=== PATIENT | female | born 1965 | race Caucasian/White ===

== ENCOUNTER 2022-06-19 09:58 | Outpatient (CLI) | payer OTHER, SELFPAY ==
--- NOTE | ~2022-06-19 | MM_ITS ---
EXAMINATION: MM screening iam BI w ros HISTORY: Screening mammogram TECHNIQUE: Craniocaudal and mediolateral oblique 3-D tomosynthesis images were obtained and synthetic 2-D images were generated. Bilateral rotated lateral CC views. CAD analysis was submitted and interpreted. COMPARISON: 10/13/2019 bilateral screening mammogram BREAST PARENCHYMAL COMPOSITION: The breasts are almost entirely fatty. FINDINGS: There is no evidence of suspicious mass, calcification, or architectural distortion to sugg est malignancy in either breast. There has been no suspicious interval change. IMPRESSION: 1. No mammographic evidence of malignancy. 2. Recommend routine screening mammography in one year. BI-RADS Category 1: Negative Reviewed, dictated and finalized at location A.
== END 2022-06-19 09:59 | disposition home or self-care (01) ==
LOC: ANHIMG 10:02
PROVIDERS: PCP Student in an Organized Health Care Education/Training Program; Visit Provider Student in an Organized Health Care Education/Training Program
DX: Z12.31 Encounter for screening mammogram for malignant neoplasm of breast (principal)
CPT/HCPCS: 77063; 77067

== ENCOUNTER 2025-04-22 13:12 | Inpatient (IN) | payer OTHER, SELFPAY ==
[2025-04-22] VITALS (8 sets, daily range): BP systolic 111–155; BP diastolic 58–95; PULSE 52–60; RESP 16–25; TEMP 36.1–36.2; O2SAT 92–97; BMI 49.1
--- NOTE | ~2025-04-22 | CT_ITS ---
CTA chest PE protocol Ordering provider: Farzaneh Bone MD History: 59 years Female with . Hypoxia . Comparison: None. Technique: CT angiogram chest was performed following timed intravenous injection of contrast. Thin s lice axial images and reformatted coronal images were obtained. Three dimensional reformatted images of the chest were also obtained using a [employer] workstation. . Automated exposure control and iterati ve reconstruction technique were employed. The dose-length product was 1010.29 mGy-cm. 100 mL Omnipaq ue 350 was given IV. Findings: PULMONARY ARTERIES: No pulmonary embolus. VISUALIZED THORACIC INLET: Enlarged thyroid gland with a slight narrowing of the trachea.. Ultrasound evaluation clinical correlation advised. MEDIASTINUM: Aorta/coronary arteries: The thoracic aorta is normal. Heart/other: The heart is moderately enlarged. Lymph nodes: No mediastinal or hilar adenopathy. Dilated esophagus is noted. Further evaluation advised. LUNGS: Left basilar atelectasis versus pneumonia. Secretions are seen in the left main bronchus. No pulmonar y nodules or masses. No infiltrates or effusions. No pneumothorax. VISUALIZED UPPER ABDOMEN: Enlarged left adrenal gland with adenoma measuring 3.2 cm.. Further evaluat ion with MRI is advised. Status post cholecystectomy. Multiple hypodensities in the spleen which may be due to a perfusion phase but lesions cannot be excluded. Follow-up advised. Otherwise, the visuali zed upper abdomen is normal. MUSCULOSKELETAL: Soft tissues: The superficial soft tissues are normal. Bones: Age appropriate degenerative changes of the spine. IMPRESSION: 1. No pulmonary embolism. 2. Left basilar atelectasis versus pneumonia. 3. Enlarged thyroid gland with slight narrowing of the trachea. 4. Dilated esophagus. Further evaluation advised. 5. Left adrenal mass. Further evaluation advised with MRI. 6. Multiple hypodensities in the spleen. Follow-up advised. 7. Moderate cardiomegaly. Reviewed, dictated and finalized at location A.
--- NOTE | ~2025-04-22 | US_ITS ---
EXAMINATION: US thyroid DATE: 04/23/2025 08:26 INDICATION: Thyromegaly. TECHNIQUE: Multiple ultrasound images of the thyroid were obtained. COMPARISON: 03/15/2012 FINDINGS: The right thyroid lobe measures 6.9 x 2.7 x 3.2 cm. The left thyroid lobe measures 2.4 x 2.3 cm in t ransaxial dimensions. The length of the left thyroid lobe which measures approximately 5.5 cm on the prior CT is unable to be assessed on the current ultrasound as there is significant intrathoracic ext ension of the inferior left thyroid which is obscured by the clavicles and manubrium. There is a diff use heterogeneous hypoechoic pseudonodular appearance to the thyroid with coarsened echotexture and i ncreased vascular flow on color Doppler. No discrete nodules identified. IMPRESSION: 1. Enlarged and heterogeneously hypoechoic thyroid with pseudonodular appearance typical of Demetrio 's/lymphocytic thyroiditis. Reviewed, dictated and finalized at location A. IMPRESSION: 1. Enlarged and heterogeneously hypoechoic thyroid with pseudonodular appearanc e typical of Demetrio's/lymphocytic thyroiditis.
--- NOTE | ~2025-04-22 | CT_ITS ---
Non-contrast Head CT History: Altered mental status Technique: Axial non-contrast imaging of the brain was performed. Dose reduction technique was used on this scan by utilizing automated exposure control and iterative reconstruction technique. The dose -length product (DLP) was 605.33 mGy-cm. Findings: There is no evidence of intracranial hemorrhage, mass lesion, or acute infarct. Brain par enchyma appears normal. The ventricles and subarachnoid spaces are normal in size. The calvarium ap pears normal. The visualized paranasal sinuses and mastoid air cells are clear. Impression: No significant abnormality seen. Reviewed, dictated and finalized at location . Impression: No significant abnormality seen.
--- NOTE | ~2025-04-22 | XR_ITS ---
XR chest 1V portable Ordering provider: Farzaneh Bone MD History: 59 years Female with . Altered . Comparison: October 14, 2019 FINDINGS: MEDIASTINUM: The cardiac silhouette is moderately enlarged. Congestive misael. LUNGS: No effusions or pneumothorax. Bibasilar opacification suggestive of atelectasis versus pneumonia. Bilateral interstitial thickening which is suggestive of pulmonary edema. OTHER: No free air under the diaphragm. IMPRESSION: Bibasilar pneumonia. Highly suggestive cardiomegaly with cardiac decompensation and pulmonary edema. Clinical correlation advised. Reviewed, dictated and finalized at location A.
--- NOTE | 2025-04-22 13:20 | ED_ITS ---
HPI - Altered Mental Status General Chief Complaint: Altered Mental Status Stated Complaint: AMS Time Seen by Provider: 04/22/25 13:14 Source: patient and EMS Mode of arrival: EMS Limitations: no limitations History of Present Illness HPI narrative: 5 years old white female came from home by ambulance with altered mental status. Family came to check on the patient then call 911. Patient complaining of urine frequency and burning sensation for weeks patient blood glucose was 63 patient's symptom resolved immediately after having 15 g of oral glucose. EMS gave 200 mL of D10. In the ED patient is awake, alert oriented x4, complaining of urinary symptoms for weeks otherwise she denies any fever, chills, nausea, vomiting, diarrhea, constipation, abdominal pain, chest pain, shortness of breath or back pain. Patient lives with her son Patient reports eating her breakfast and taking her medication this morning as usual. Related Data Home Medications ?Medication ?Instructions ?Recorded ?Confirmed ?Last Taken ?Type aripiprazole 10 mg tablet 10 mg PO DAILY 01/05/22 03/13/22 Unknown History duloxetine 30 mg capsule,delayed 30 mg PO DAILY 01/05/22 03/13/22 Unknown History release duloxetine 60 mg capsule,delayed 60 mg PO DAILY 01/05/22 03/13/22 Unknown History release doxycycline hyclate 100 mg tablet 100 mg PO DAILY 03/10/22 03/13/22 Unknown History furosemide 20 mg tablet 20 mg PO QAM 03/10/22 03/13/22 Unknown History levofloxacin 750 mg tablet 750 mg PO DAILY 03/10/22 03/13/22 Unknown History trazodone 50 mg tablet 50 mg PO QHS PRN 03/10/22 03/13/22 Unknown History Allergies Allergy/AdvReac Type Severity Reaction Status Date / Time varenicline Allergy Unknown Verified 09/04/22 09:18 No Known Drug Allergies Allergy Unknown Verified 09/04/22 09:18 Review of Systems 2 Review of Systems: All systems reviewed & are unremarkable except as noted in HPI and below PMFSH Past Medical History Medical History Hypothyroidism Anxiety Hypertension Surgical History Surgical History History of bladder suspension procedure H/O hernia repair History of appendectomy H/O: hysterectomy History of section Hx of cholecystectomy Family History Family History Father Depression Acute myocardial infarction, Onset Age: 21 drug-cocaine Sibling Thyroid disorder Diabetes mellitus Sibling Family history of alcoholism Family history of diabetes mellitus in first degree relative Father Family history of coronary artery disease Hypertension Family history of hepatitis Family history of congestive heart failure Family history of heart disease in male family member before age 55 Mother Family history of lung disease Social History Social History Smoking status: Former smoker Second hand tobacco smoke exposure: No Smoking end date: 11/05/10 Alcohol intake: never Substance use type: marijuana Living arrangements: with family Exam 2 Narrative: General appearance: Well-developed, well-nourished Skin: Normal color Head: Normocephalic, nontraumatic Eyes: Clear conjunctiva ENT: Oropharynx normal, ears normal, nose normal Neck: Supple, nontender Chest and respiratory: Airway patent, no respiratory distress, no accessory muscle use Heart: Regular rate/rhythm Abdomen: Soft, nontender, no organomegaly, quiet bowel sounds Vascular: Normal peripheral pulses, normal capillary refill. Musculoskeletal: Normal range of motion, nontender back Neurologic: Alert and oriented ?3, MERCHANDISER is normal as tested, no gross motor deficit Course Vital Signs Vital signs: Vital Signs Pulse Rate 60 04/22/25 13:13 Respiratory Rate 25 H 04/22/25 13:13 Blood Pressure 155/95 H 04/22/25 13:13 Pulse Oximetry 93 04/22/25 13:13 Oxygen Delivery Room Air 04/22/25 13:13 Pulse Rate 60 04/22/25 15:58 Respiratory Rate 17 04/22/25 15:58 Blood Pressure 129/84 04/22/25 15:58 Pulse Oximetry 95 04/22/25 15:58 Oxygen Delivery Room Air 04/22/25 13:28 MDM - Altered Mental Status MDM Narrative Medical decision making narrative: Patient presents with altered mental status Vital signs showing blood pressure 155/95, respiratory rate 25 otherwise within normal limit Physical examination showing obese patient, does not look in pain or distress, awake alert oriented x4 Differential diagnosis include diabetic hyperglycemia, urinary tract infection, electrolyte imbalance, dehydration, TIA Blood workup today includes CBC, CMP, troponin, coags showed TSH 51.9 otherwise within normal limit Urinalysis showed no evidence of infection Chest x-ray showed cardiomegaly, pulmonary edema CT head without contrast showed no acute abnormalities ABG on room air showed hypoxia CTA pulmonary showed atelectasis versus pneumonia, large thyroid gland, dilated esophagus, left adrenal mass, multiple hypodensities in the spleen, moderate cardiomegaly Diagnosis alter mental status, resolved, diabetic hyperglycemia, hypoxia, cardiomegaly, hypothyroidism Admit to hospitalist Differential Diagnosis Differential diagnosis: Likely other (As above) Lab Data 04/22/25 14:06 04/22/25 14:06 Labs: Lab Results 04/22/25 04/22/25 Range/Units 13:29 14:06 WBC 5.8 (4.5-10.0) K/mm3 RBC 5.54 H (4.2-5.4) M/mm3 Hgb 14.2 (12.0-15.0) g/dL Hct 46.7 (37.0-47.0) % MCV 84.3 (80-100) fl MCH 25.6 L (26-34) pg MCHC 30.4 L (32-36) g/dl RDW 16.8 H (11.5-14.5) % Plt Count 175 (150-375) k/mm3 MPV 10.0 (7.4-10.4) fl Immature Gran % (Auto) 0.3 (0-0.5) % Neut % (Auto) 70.8 (45.5-73.1) % Lymph % (Auto) 23.0 (18.3-44.2) % [place] % (Auto) 5.0 (2.6-8.5) % Eos % (Auto) 0.2 (0-4.4) % Baso % (Auto) 0.7 (0.2-1.2) % Lymph # (Auto) 1.33 (0.9-3.2) K/mm3 [place] # (Auto) 0.3 (0.1-0.6) K/mm3 Eos # (Auto) 0.0 (0-0.3) K/mm3 Baso # (Auto) 0.0 (0.0-0.1) K/mm3 Abs Immat Gran (auto) 0.02 (0.00-0.031) K/mm3 Absolute Neuts (auto) 4.1 (1.3-6.7) K/mm3 Absolute Nucleated RBC 0.000 (0.0-0.012) K/mm3 Nucleated RBC % 0.0 (0.0-0.2) % PT 12.9 (11.1-14.7) Seconds INR 1.0 APTT 28.7 (22.3-36.8) Seconds Sodium 137 (137-145) mmol/L Potassium 3.6 (3.4-5.0) mmol/L Chloride 101 (98-107) mmol/L Carbon Dioxide 27 (22-30) mmol/L Anion Gap 9 (4-12) mmol/L BUN 17 (7-17) mg/dL Creatinine 0.87 (0.7-1.0) mg/dL Estim Creat Clear Calc 95 ml/min Estimated GFR > 60 (59 - ) Glucose 157 H (65-110) mg/dL POC Capillary Glucose 204 H (65-105) mg/dl Calcium 9.4 (8.4-10.2) mg/dL Total Bilirubin 0.8 (0.2-1.3) mg/dL AST 19 (14-36) U/L ALT 15 (6-35) U/L Alkaline Phosphatase 74 (38-126) U/L Ammonia < 9 L (9-30) umol/L Total Creatine Kinase 35 (30-135) U/L Troponin I < 0.012 (0.000-0.034) ng/mL NT-Pro-B Natriuret Pep 205 H (19.9-100) pg/mL Total Protein 7.7 (6.3-8.2) g/dL Albumin 4.1 (3.5-5.1) g/dL TSH 51.900 H (0.465-4.680) uIU/mL Urine Color Yellow (Yellow) Urine Appearance Clear (Clear) Urine pH 6.5 (5.0-9.0) Ur Specific [place] 1.006 (1.001-1.035) Urine Protein Negative (Negative) mg/dL Urine Glucose (UA) 2+ H (Negative) mg/dL Urine Ketones Negative (Negative) mg/dL Ur Blood (Man) Negative (Negative) Urine Nitrate Negative (Negative) Urine Bilirubin Negative (Negative) Urine Urobilinogen 0.2 (<2.0) mg/dL Leukocyte Esterase Rfl Negative (Negative) KISHOR/UL Urine Opiates Screen Negative (Negative) Urine Methadone Screen Negative (Negative) Ur Barbiturates Screen Negative (Negative) Ur Phencyclidine Scrn Negative (Negative) Ur Amphetamine Screen Negative (Negative) U Benzodiazepines Scrn Negative (Negative) Urine Cocaine Screen Negative (Negative) U Cannabinoids Screen Positive A (Negative) Ethyl Alcohol < 10 (<10) mg/dL ABG Data ABG results: 04/22/25 13:43 Puncture Site Right radial ABG pH 7.416 ABG pCO2 40.5 ABG pO2 60.2 L ABG PO2/FiO2 Ratio 2.87 ABG HCO3 25.4 ABG O2 Saturation 91.5 L ABG O2 Content 18.9 ABG Base Excess 0.9 A-a Gradient 41.0 Oxyhemoglobin 87.5 L* Total Hemoglobin 15.4 O2 Delivery Device Room air O2 Liters/Min Not Reportable FiO2 21 Critical Care Time Critical Care Time Critical Care Time: No Discharge Plan Discharge Clinical Impression: Acute alteration in mental status, Diabetic hypoglycemia, Cardiomegaly, Hypothyroidism Patient Disposition: Still a Patient Condition: Improved Additional Instructions: Admit to hospitalist Patient Language: [place] Korean Prescriptions: No Action duloxetine 60 mg capsule,delayed release(DR/EC) 60 mg PO DAILY duloxetine 30 mg capsule,delayed release(DR/EC) 30 mg PO DAILY aripiprazole 10 mg tablet 10 mg PO DAILY levothyroxine 200 mcg tablet 200 mcg PO DAILY Qty: 90 1RF levothyroxine 50 mcg tablet 50 mcg PO DAILY Qty: 90 1RF trazodone 50 mg tablet 50 mg PO QHS PRN furosemide 20 mg tablet 20 mg PO QAM levofloxacin 750 mg tablet 750 mg PO DAILY doxycycline hyclate 100 mg tablet 100 mg PO DAILY ibuprofen 800 mg tablet See Rx Instructions .ROUTE .COMPLEX Qty: 90 0RF Dose Instruction: TAKE 1 TABLET BY MOUTH EVERY 8 HOURS NEEDED FOR PAIN Rx Instructions: TAKE 1 TABLET BY MOUTH EVERY 8 HOURS NEEDED FOR PAIN albuterol sulfate [Ventolin HFA] 90 mcg/actuation HFA aerosol inhaler 2 puff inhalation Q4H PRN (Reason: shortness of breath or wheezing) Qty: 6.7 0RF Rx Instructions: pt needs an appt Follow-up/Referrals: Troy,DO Casimiro [Primary Care Provider] - Quality Stroke Date of last known normal: 04/22/25 Stroke Scale Stroke Scale 1: Stroke scale date:: 04/22/25 1a Level of consciousness: alert-0 1b Level of consciousness questions: answers both correctly-0 1c Level of consciousness commands: obeys both correctly-0 2 Best gaze: normal-0 3 Visual: no visual loss-0 4 Facial palsy: normal-0 5a Motor: left arm: no drift-0 5b Motor: right arm: no drift-0 6a Motor: left leg: no drift-0 6b Motor: right leg: no drift-0 7 Limb ataxia: absent-0 8 Sensory: normal-0 9 Best language: no aphasia-0 10 Dysarthria: normal-0 11 Extinction and inattention: no abnormality-0 Level:: 0
--- NOTE | 2025-04-22 13:20 | ECG_ITS ---
Test Date: 2025-04-22 13:41:40 Measurements Intervals [place] Rate: 53 P: 23 LA: 175 QRS: 70 QRSD: 101 T: 7 QT: 436 QTc: 412 Interpretive Statements SINUS BRADYCARDIA INCOMPLETE RIGHT BUNDLE BRANCH BLOCK CONSIDER ANTERIOR INFARCT, AGE INDETERMINATE MODERATE T-WAVE ABNORMALITY, CONSIDER ANTEOSEPTAL ISCHEMIA BASELINE ARTIFACT- I, II, III, AVR, AVL, AVF, V1, V4-V6 ABNORMAL ECG No previous ECG available for comparison Electronically Signed On 04-22-2025 14:03:28 CDT by Bhanu Salvador D.O.
[2025-04-22 13:35] LABS: Glucose Point of Care 204 mg/dl (65-105)
[2025-04-22 13:54] LABS: Base Excess ABG 0.9 mEq/l (+/-2.0); Fractional Inspired Oxygen 21 %; HCO3 ABG 25.4 mEq/l (22.0-26.0); Oxygen Content ABG 18.9 %vol (16.0-22.0); Oxygen Saturation ABG 91.5 % (95.0-100.0); PCO2 ABG 40.5 mmHg (35.0-45.0); PO2 ABG 60.2 mmHg (80.0-100.0); PO2 FiO2 Ratio Arterial Blood 2.87 %; Total Hemoglobin 15.4 g/dL (12.0-18.0); pH ABG 7.416 (7.350-7.450)
[2025-04-22 13:55] LABS: Device ROOM AIR; Modified Allen's Test Pass; Oxyhemoglobin 87.5 % THb (90.0-100.0); Site Drawn RIGHT RADIAL
[2025-04-22 14:15] LABS: Basophils Percent Auto 0.7 % (0.2-1.2); Eosinophils Percent Auto 0.2 % (0-4.4); Hematocrit 46.7 % (37.0-47.0); Hemoglobin 14.2 g/dL (12.0-15.0); Immature Granulocyte Absolute 0.02 K/mm3 (0.00-0.031); Immature Granulocyte Percent A 0.3 % (0-0.5); Lymphocytes Absolute Auto 1.33 K/mm3 (0.9-3.2); Mean Corpuscular HGB Conc 30.4 g/dl (32-36); Mean Corpuscular Hemoglobin 25.6 pg (26-34); Mean Corpuscular Volume 84.3 fl (80-100); Monocytes Absolute Auto 0.3 K/mm3 (0.1-0.6); Neutrophils Absolute Auto 4.1 K/mm3 (1.3-6.7); Neutrophils Percent Auto 70.8 % (45.5-73.1); Platelet Count Result 175 k/mm3 (150-375); Red Blood Count 5.54 M/mm3 (4.2-5.4); Red Cell Distribution Width 16.8 % (11.5-14.5); White Blood Count 5.8 K/mm3 (4.5-10.0)
[2025-04-22 14:19] LABS: Add Urine Microscopic? NO; Appearance Urine Clear (Clear); Bilirubin Urine Negative (Negative); Blood Urine Negative (Negative); Color Urine Yellow (Yellow); Glucose Urine UA 2+ mg/dL (Negative); Ketones Urine Negative (Negative); Leukocyte Esterase Ur Negative LEU/UL (Negative); Nitrate Urine Negative (Negative); Protein Urine Negative (Negative); Specific Grav Ur 1.006 (1.001-1.035); Urobilinogen Urine 0.2 mg/dL (<2.0); pH Urine 6.5 (5.0-9.0)
[2025-04-22 14:27] LABS: Ammonia < 9 umol/L (9-30); Creatine Kinase 35 U/L (30-135); Ethanol < 10 mg/dL (<10); Partial Thromboplastin Time 28.7 Seconds (22.3-36.8); Prothrombin Time 12.9 Seconds (11.1-14.7)
[2025-04-22 14:31] LABS: Alanine Aminotransferase 15 U/L (6-35); Albumin Level 4.1 g/dL (3.5-5.1); Alkaline Phosphatase 74 U/L (38-126); Anion Gap 9 mmol/L (4-12); Aspartate Amino Transferase 19 U/L (14-36); Bilirubin,Total 0.8 mg/dL (0.2-1.3); Blood Urea Nitrogen 17 mg/dL (7-17); Calcium 9.4 mg/dL (8.4-10.2); Carbon Dioxide 27 mmol/L (22-30); Chloride 101 mmol/L (98-107); Estimated CRCL calculation 95 ml/min; Estimated Glomerular Filt Rate > 60; Glucose 157 mg/dL (65-110); Potassium 3.6 mmol/L (3.4-5.0); Sodium 137 mmol/L (137-145); Total Protein 7.7 g/dL (6.3-8.2)
[2025-04-22 14:38] LABS: Amphetamine Screen Urine Negative (Negative); Barbiturate Screen Urine Negative (Negative); Benzodiazepines Screen Urine Negative (Negative); Cannabinoid Screen Urine Positive (Negative); Cocaine Screen Urine Negative (Negative); Methadone Screen Urine Negative (Negative); Opiate Screen Urine Negative (Negative); Phencyclidine Screen Urine Negative (Negative)
[2025-04-22 14:43] LABS: Troponin I < 0.012 ng/mL (0.000-0.034)
--- OUTSIDE RECORDS SUMMARY | 2025-04-22 15:23 | XMS_ITS | Continuity of Care Document ---
Author Organization [facility] Address [id number] [place] [address] [place] [address] Phone Care Team Providers Care Restaurant Hourly Manager Name Role Phone Charlie Bond DO Unavailable Unavailable Advance Directives Directive Yes / No Effective Date File Name No Information Encounters Encounter Description Practice Location Reason(s) For Visit Diagnoses Date Provider Providers Copied on Encounter [facility], [id number] [place] [address] [address], [place], [place], [id number], [place] tel:[phone] [address] [facility] No Information Varun Jackson. [address] [facility], [place], [address], [place]. tel:[phone] Family History Family Member Type Diagnosis Age At Onset No Information Payers Payer name Insurance type Covered democrat ID Authoriza tion(s) No Information Social History Type Description Quantity Date Captured Comments Sex Female Smoking Status No Information Chief Complaint And Reason For Visit No Information Reason For Referral Reason For Referral No Information History Of Present Illness Encounter Date Complaint History Of Prese nt Illness No Information Functional Status Date Functional Assessmen t No Information Instructions Date Instruction Additional Infor mation No Information Assessments Type Assessment Date No Information Patient Care Teams Name Effective Dates (start - stop) Status Members No Information
--- OUTSIDE RECORDS SUMMARY | 2025-04-22 15:23 | XMS_ITS | Clinical Summary ---
Author Organization [facility] Address [address] [place] [address] Care Team Providers Care Tractor Drill Operator Name Role Phone Garrett Harvey MD Primary Care Provider [phone] Source Comments [facility],non-owned Affiliates and Associated Physician Practices is amultiple site organization consisting of ambulatory clinics and hospital sitesin [place], [place], [place] and [place]. This disclosure is being madepursuant to the Care Everywhere program and may not contain all information available regarding this patient. Last updated 18.[facility] Medications * Be aware that medications may not be up to date on this document. Alwaysverify current medications with the patient. fluticasone propionate (FLONASE) 50 MCG/ACT nasal spray 02/15/2017 Active ferrous sulfate 325 (65 FE) MG tablet 60 tablet 3 02/07/2017 Active Cholecalciferol (VITAMIN D) 2000 UNITS capsule Take 2,000 Units by mouth DAILY. 01/12/2017 Active levothyroxine (SYNTHROID) 150 MCG tablet Take 175 mcg by mouth DAILY. 01/12/2017 Active sertraline (ZOLOFT) 100 MG tablet Take 100 mg by mouth DAILY. 01/09/2017 Active ibuprofen (MOTRIN) 600 MG tablet Take 600 mg by mouth. 01/03/2017 Active buPROPion XL 24hr (WELLBUTRIN-XL) 150 MG tablet Take 150 mg by mouth DAILY. 01/03/2017 Active Active Problems Problem Noted Date Diagnosed Date Morbid (severe) obesity due to excess calories 0 2017 Overview (02/04/2018): ICD-10 update Hypothyroidism 01/12/2017 Obstructive sleep apnea 01/12/2017 Family History Medical History Relation Name Comments Diabetes Brother Alcohol abuse Father Status: Deceas ed Anxiety Disorder Father Arthritis - Rheumatoid Father Asthma Father Bleeding Disorders Father Depression Father Heart Disease Father Hypertension Father Liver Disease Father Lung Disease Father Alcohol abuse Mother Status: Alive Arthritis - Rheumatoid Mother Asthma Mother Diabetes Mother Eczema Mother Hypertension Mother Lung Disease Mother Mental Illness Mother Osteoporosis Mother Thyroid Disease Sister Relation Name Status Comments Brother Father Mother Sister Social History Tobacco Use Types Packs/Day Years Used Date Smoking Tobacco: Former Cigarettes Q uit: 11/05/2009 Smokeless Tobacco: Never Alcohol Use Standard Drinks/Week Comments No 0 (1 standard drink = 0.6 oz pur e alcohol) Comments Unknown Sex and Gender Information Value Date Recorded Sex Assigned at Not on file Legal Sex Female 5:35 PM INSIDE SALES DIRECTOR Gender Identity Not on file Sexual Orientation Not on file Last Filed Vital Signs Vital Sign Reading Time Taken Comments Blood Pressure 138/82 02/15/2017 1:17 PM CDT Pulse 81 02/15/2017 1:17 PM CDT Temperature 36.8 C (98.3 F) 02/15/2017 1:17 PM CDT Respiratory Rate 24 01/12/2017 2:13 PM INSIDE SALES DIRECTOR Oxygen Saturation 90% 02/15/2017 1:17 PM CDT Inhaled Oxygen Concentration - - Weight 189.6 kg (418 lb) 02/23/2017 9:07 PM CDT Height 175.3 cm (5' 9) 02/23/2017 9:07 PM CDT Body Mass Index 61.73 02/23/2017 9:07 PM CDT Plan of Treatment Health Maintenance Due Date Last Done Comments COLOGUARD (AGES 45-75) - COLON CA SCREENING 1964 COLON MONITORING 1964 COLONOSCOPY - COLON CA SCREENING 1964 CT COLONOGRAPHY - COLON CA SCREENING 1964 Colorectal Cancer Screening 1964 FIT - COLON CA SCREENING 1964 FLEX SIG - COLON CA SCREENING 1964 MAMMOGRAM 1964 MEDICARE AWV 12 MONTHS 1964 HIV SCREENING 1979 HEPATITIS C SCREENING 05/26/1982 DTAP/TDAP/TD VACCINES (1 - Tdap) 1983 PAP SMEAR 1985 PNEUMOCOCCAL VACCINE 50+ (1 of 1 - PCV) 2014 ZOSTER VACCINE (1 of 2) 2014 Respiratory Syncytial Virus (RSV) Vaccine Pt: or over 60 yrs (1 - Risk 60-74 years 1-dose series) 2024 COVID-19 VACCINE ( season) 2024 02/26/2021, 02/05/2021 DEPRESSION SCREENING 11/05/2024 INFLUENZA VACCINE (Season Ended) 2025 11/04/2022, 09/01/2021, 11/10/2020, Additional history exists LIPID TESTING 11/28/2027 11/28/2022, 11/06, 11/26/2022, Additional history exists HEPATITIS B VACCINE Aged Out No longe r eligible based on patient's age to complete this topic HIB VACCINE Aged Out No longer eligi ble based on patient's age to complete this topic HPV VACCINE Aged Out No longer eligi ble based on patient's age to complete this topic MENINGOCOCCAL (Group B) VACCINE SHARED DECISION-MAKING Aged Out No longer eligible based on patient's age to complete this topic MENINGOCOCCAL GROUPS A/C/Y/W VACCINE Aged Out No longer eligible based on patient's age to complete this topic Procedures Procedure Name Priority Date/Time Associated Diagnosis Comments LIPID PROFILE Routine 03/01/2017 8:52 AM CDT from Last 3 Months or Most Recently Relevant to Health Maintenance Results * (ABNORMAL) LIPID PROFILE (03/01/2017 8:52 AM CDT) Cholesterol Total 239(H) 125 - 200 mg/dL [facility] HDL 35(L) > OR = 46 mg/dL [facility] Triglycerides 170(H) <150 mg/dL [facility] LDL Calculated 170(H) <130 mg/dL (calc) [facility] Comment: Desirable range <100 mg/dL for patients with CHD or diabetes and <70 mg/dL for diabetic patients with known heart disease. Chol/HDL Ratio 6.8(H) < OR = 5.0 (calc) [facility] Non HDL Cholesterol 204(H) mg/dL (calc) [facility]) Comment: Target for non-HDL cholesterol is 30 mg/dL higher than LDL cholesterol target. Test Performed at: [facility] [address] [address] HALEY HAMLIN DO,MPH 03/01/2017 8:52 AM CDT 03/01/2017 9:02 AM CDT Joe Argueta MD LAB - CHEMISTRY ORDERABLES E dited Result - Final [facility]) [address] from Last 3 Months or Most Recently Relevant to Health Maintenance Insurance [employer] MEDIC[place] Advance Directives * Full Code (Latest Code Status on File) Date Activated Date Inactivated Comments 12/24/2022 5:30 PM 01/06/2023 11:34 AM Care Teams Tractor Drill Operator Relationship Specialty Start Date End Date Garrett Harvey MD [address] [place] [phone] PCP - General 02/15/17
--- OUTSIDE RECORDS SUMMARY | 2025-04-22 15:23 | XMS_ITS | Encounter Summary ---
Author Organization [facility] Address [address] [place] [address] Care Team Providers Care Home Improvement Contractor Name Role Phone Garrett Harvey MD Primary Care Provider [phone] Encounter Details Date Type Department Care Team (Latest Contact Info) Description 12/22/2022 9:02 PM FLIGHT COMMUNICATIONS OPERATOR Hospital Encounter [facility] [address] [address] Deisree Campo MD [address] [place] [phone] [employer] Social History Tobacco Use Types Packs/Day Years Used Date Smoking Tobacco: Former Cigarettes Q uit: 11/05/2009 Smokeless Tobacco: Never Alcohol Use Standard Drinks/Week Comments No 0 (1 standard drink = 0.6 oz pur e alcohol) Comments Unknown Sex and Gender Information Value Date Recorded Sex Assigned at Not on file Legal Sex Female 5:35 PM FLIGHT COMMUNICATIONS OPERATOR Gender Identity Not on file Sexual Orientation Not on file documented as of this encounter Plan of Treatment Not on file documented as of this encounter Visit Diagnoses Not on filedocumented in this encounter Care Teams Home Improvement Contractor Relationship Specialty Start Date End Date Garrett Harvey MD [address] [facility] [place] [id number] PCP - General 02/15/17 documented as of this encounter
--- OUTSIDE RECORDS SUMMARY | 2025-04-22 15:23 | XMS_ITS | Patient Health Record ---
Author Organization [facility] Address [address] [place] [address] Care Team Providers Care Fisher Trammel Net Name Role Phone Zaria Trivedi Primary Care Provider [phone] [address] [facility] Unavailable U navailable Reason For Referral No Information Medications Medication SIG (Take, Route, Frequency, Duration) Notes Start Date End Date Status Levothyroxine Sodium 100 MCG 1 tablet on an empty stomach Orally Once a day for 30 day(s) 01/18/2016 Active Levothyroxine Sodium 125 MCG 1 capsule Orally Once a day for 30 Day(s) 03/14/2016 Active Influenza Vac Split Quad 0.5 ML as directed Intramuscular once for 1 dose 01/06/2016 Active hydroCHLOROthiazide 12.5 MG 1 tablet Orally Once a day for 30 day(s) for water retention 01/12/2016 Active Zoloft 100 MG 1 tablet Orally Once a day for 30 days Active Immunizations Vaccine Route Administration Date Status Comme nts Influenza, seasonal, injectable (split), for 3 yrs and up IM Intramuscular 01/06/2016 Administered Pt tolerated injection well. Pt verbalized understanding of VIS information given to her. Pt stated she had no questions. Problems Problem Type SNOMED Code ICD Code Onset Dates Problem Status W/U Status Risk Notes Problem 81784148 Depression (F32.9) Active confirmed Problem 548812448 Obesity (E66.9) Active confirmed Problem 21135712 Abdominal hernia (K46.9) Active confirmed Plan Of Treatment No Information Insurance Providers Payer Name Payer Address Payer Phone Subscriber Number Group Number Insured Name Patient Relationship to Insured Coverage Start Date Coverage End Date [facility] [address] [place] [address] [id number] Angie Hdz Self - patient is the insured 6 Medical (General) History Medical History History ICD Code Hypothyroidism Palpitations Abdominal hernia Hypertension Surgical History Surgery Date(Month/Year) 06/1989 /partial hystol/hernia surgery / bladder sup 05/1999 cholecystectomy 11/1999 tonsillectomy and adenoidectomy 1969 Hospitalization History Reason Date(Month/Year) 1998 hysterectomy bladder suspension and abdo ladi hernia repair 1998
--- OUTSIDE RECORDS SUMMARY | 2025-04-22 15:23 | XMS_ITS | Clinical Summary ---
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 11/29/19 23 Active albuterol (PROVENTIL,VENT CHELSEA) 2.5 mg /3 mL (0.083 %) Solution for Nebulization Take 3 mL (2.5 mg) by inhalation every 6 hours as needed for Wheezing. 11/28/19 23 Active HYDROcodone-herminia taminophen (NORCO) 5-325 mg tabletIndicatio ns:Other chronic pain 1 Tablet by NG Tube route every 4 hours as needed for Pain. Max Daily Amount: 6 Tablets 20 Tablet 11/28/19 23 Active levothyroxine 125 mcg tablet 2 Tablets (250 mcg) by NG Tube route daily in the morning. 11/29/19 23 Active gabapentin (NEURONTIN) 100 mg capsule Take 100 mg by mouth 2 times daily. Active amLODIPine (NORVASC) 10 mg tablet Take 10 mg by mouth daily. Active DULoxetine (CYMBALTA) 60 mg Capsule, Delayed Release(E.C.) Take 60 mg by mouth daily. Active fluticasone propion-salmete roL (Advair Diskus) 250-50 mcg/dose disk inhaler Take 1 Puff by inhalation 2 times daily. Active triamcinolone acetonide (KENALOG) 0.1 % Cream Apply to affected area 2 times daily. Apply liberally, circumferentially BID to BLEs...from below the knees through the feet (excluding LLE open wound). 02/11/20 Active Active Problems Problem Noted Date Diagnosed Date COPD (chronic obstructive pulmonary disease) Essential hypertension 01/31/2023 Acute respiratory failure 11/20/2022 Mucus plugging of bronchi 11/13/2022 Acute respiratory failure with hypercapnia 11/06 Necrotizing soft tissue infection 11/06/2022 Acute systolic heart failure 11/06/2022 Acute on chronic respiratory failure with hypoxia and hypercapnia 11/02/2022 Severe sepsis with septic shock 11/01/2022 Cellulitis of left lower extremity 11/01/2022 DANA (acute kidney injury) 11/01/2022 Other secondary thrombocytopenia 11/01/2022 Leukopenia 11/01/2022 Chronic pain left leg 11/01/2022 Lymphedema of left lower extremity 11/01/2022 Acquired hypothyroidism 11/01/2022 Hypoxemia ? underlying copd 20 Pack froyasr regina g history 11/01/2022 Immunizations Immunization Administration Dates Next Due (ADACEL/BOOSTRIX)(10 YR UP) TDAP VACCINE, 0.5ML, IM 11/04/2022 (PREVNAR 20)(6 WKS UP) PNEUM OCOCCAL CONJUGATE VACCINE 20-VALENT (PCV20), POLYSACCHARIDE [id number] CONJUGATE, ADJUVANT 0.5 ML (PF) IM 11/04/2022 INFLUENZA VACCINE QUADRIVALENT 6 MOS UP PF IM Family History Medical History Relation Name Comments Diabetes Brother Relation Name Status Comments Brother Social History Tobacco Use Types Packs/Day Years Used Date Smoking Tobacco: Former Cigarettes Tobacco Cessation:Counseling Given: Not Answered Comments:Former cigarette smoker, current marijuana smoker Comments Unknown Sex and Gender Information Value Date Recorded Sex Assigned at Not on file Legal Sex Female 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 Gender Identity Not on file Sexual Orientation Not on file Last Filed Vital Signs Vital Sign Reading Time Taken Comments Blood Pressure 125/61 02/10/2023 8:38 AM CDT Pulse 86 02/10/2023 8:48 AM CDT Temperature 37.3 C (99.1 F) 02/10/2023 8:38 AM CDT Respiratory Rate 20 02/10/2023 8:48 AM CDT Oxygen Saturation 94% 02/10/2023 8:48 AM CDT Inhaled Oxygen Concentration - - Weight 133.7 kg (294 lb 12.1 oz) 01/31/2023 6:00 AM CDT Height 175.3 cm (5' 9) 01/31/2023 6:00 AM CDT Body Mass Index 43.53 01/31/2023 6:00 AM CDT Plan of Treatment Health Maintenance Due Date Last Done Comments BREAST CANCER SCREENING 2004 COLORECTAL SCREENING 2009 Colorectal Cancer Screening 2009 FIT-DNA Q 3 years 2009 FIT/FOBT Q 1 year 2009 Flex Sig/CT Colonography Q 5 years 2009 ZOSTER VACCINE (1 of 2) 2014 RSV VACCINE (60+ or ) (1 - Risk 60-74 years 1-dose series) 2024 INFLUENZA VACCINE (#1) 2024 2, 11/04/2022, 09/01/2021, Additional history exists DTAP/TDAP/TD VACCINES (2 - Td or Tdap) 11/04/2032 11/04/2022 HEPATITIS B VACCINES Aged Out No long er eligible based on patient's age to complete this topic Medical Devices Implanted Type 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 Representative Meats Device Identifier Shelf Expiration Date Model / Serial / Lot Hemostatic Surgicel 4x8in 1952 - [id number] Implanted:Qty : 1 on 11/24/2022 by Lucero Enrique MD at [facility] Hemostatic N/A: Throat [employer] [id number] 05/04/[birth year]271951 / / [id number] [place] [address] MCR Advance Directives For more information, please contact: [phone] * Full Code (Latest Code Status on File) Date Activated Date Inactivated Comments 01/31/2023 5:09 AM 02/10/2023 4:57 PM * Full Code Date Activated Date Inactivated Comments 11/01/2022 7:37 PM 11/28/2022 8:00 PM Care Teams Mixed Crop And Livestock Farm 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
--- OUTSIDE RECORDS SUMMARY | 2025-04-22 15:23 | XMS_ITS | Clinical Summary ---
Author Organization [facility] Address [address] [facility] [facility] [place] [address] Phone Care Team Providers Care Building Construction Ironworker Name Role Phone [email or web address] Casimiro Evan HOLLIS Primary Care Provider + Allergies No known active allergies Medications acetaminophen (TYLENOL) 325 MG tablet 2 tablets (650 mg total) by PO/Per Tube route every 6 (six) hours as needed for mild pain. 0 12/22/2022 Active ascorbic acid (VITAMIN C) 500 MG tablet 1 tablet (500 mg total) by PO/Per Tube route in the morning. 0 12/23/2022 Active DULoxetine (CYMBALTA) 60 MG capsule 1 capsule (60 mg total) by PO/Per Tube route in the morning. 0 12/23/2022 Active famotidine (PEPCID) 20 MG tablet 1 tablet (20 mg total) by PO/Per Tube route in the morning and 1 tablet (20 mg total) before bedtime. 0 12/22/2022 Active senna (SENOKOT) 8.6 MG tablet Take 1 tablet (8.6 mg total) by mouth in the morning and 1 tablet (8.6 mg total) before bedtime. 0 12/22/2022 Active zinc sulfate (ZINCATE) 220 (50 Zn) MG capsule 1 capsule (220 mg total) by PO/Per Tube route in the morning. 0 12/23/2022 Active levothyroxine (SYNTHROID) 125 MCG tablet 2 tablets (250 mcg total) by PO/Per Tube route Daily at 6am. 60 tablet 01/07/2023 Active magnesium oxide 400 (240-250 Mg) MG tablet 1 tablet (400 mg total) by PO/Per Tube route in the morning and 1 tablet (400 mg total) before bedtime. 0 01/06/2023 Active metoprolol tartrate (LOPRESSOR) 25 MG tablet 1 tablet (25 mg total) by PO/Per Tube route in the morning and 1 tablet (25 mg total) before bedtime. 60 tablet 01/06/2023 Active Active Problems Problem Noted Date Diagnosed Date Fasciitis 11/29/2022 Hypertension 11/29/2022 Morbid obesity 11/29/2022 Acute respiratory failure 11/28/2022 Necrotizing soft tissue infection 11/06/2022 Immunizations Immunization Administration Dates Next Due Influenza, Quadrivalent 11/04/2022,09/01/2021,,09/09/2019 Influenza, Unspecified 10/11/2018 Pfizer SARS-CoV-2 Vaccination 02/26/2021, 021 Pneumococcal Conjugate 11/04/2022 Tdap 11/04/2022 Social History Tobacco Use Types Packs/Day Years Used Date Smoking Tobacco: Never Assessed Tobacco Cessation:Counseling Given: Not Answered Comments Unknown Sex and Gender Information Value Date Recorded Sex Assigned at Not on file Legal Sex Female 5:58 PM EST Gender Identity Not on file Sexual Orientation Not on file Last Filed Vital Signs Vital Sign Reading Time Taken Comments Blood Pressure 119/87 01/06/2023 8:00 AM 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 Pulse 80 01/06/2023 8:00 AM 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 Temperature 36.6 C (97.8 F) 01/06/2023 8:00 AM 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 Respiratory Rate 18 01/06/2023 8:00 AM 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 Oxygen Saturation 91% 01/06/2023 8:00 AM 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 Inhaled Oxygen Concentration - - Weight 140.6 kg (310 lb) 12/24/2022 5:15 PM 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 Height 175.3 cm (5' 9) 12/24/2022 5:15 PM 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 Body Mass Index 45.78 12/24/2022 5:15 PM 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 Plan of Treatment Health Maintenance Due Date Last Done Comments CT Colonography 1964 Colonoscopy 1964 Colorectal Cancer Screening 1964 FIT-DNA (Cologuard) 1964 FIT 1964 FOBT 1964 HPV/PAP 1964 Sigmoidoscopy 1964 Annual Visit Topic 1965 MMR Vaccines (1 of 1 - Stand ken series) 1965 Hepatitis C Screening 1982 Pap Smear 1985 Cervical Cancer Screening 1994 HPV/Cotest 1994 HPV 1994 Mammogram 2004 DTaP/Tdap/Td Vaccines (2 - T d or Tdap) 11/04/2032 11/04/2022 HIB Vaccines Aged Out No longer eligi ble based on patient's age to complete this topic HPV Vaccines Aged Out No longer eligi ble based on patient's age to complete this topic Hepatitis A Vaccines Aged Out No long er eligible based on patient's age to complete this topic Hepatitis B Vaccines Aged Out No long er eligible based on patient's age to complete this topic IPV Vaccines Aged Out No longer eligi ble based on patient's age to complete this topic Meningococcal Vaccine Aged Out No tracie tu eligible based on patient's age to complete this topic Pneumococcal Vaccine: Pediat rics (0 to 5 years) and At-Risk Patients (6 to 64 Years) Aged Out No longer eligi ble based on patient's age to complete this topic Additional Health Concerns Infection Onset Date Last Indicated MRSA Comment:Added from external infection. 08/17/2021 Advance Directives * Full Resuscitation (Latest Code Status on File) Date Activated Date Inactivated Comments 12/24/2022 6:03 PM 01/06/2023 1:54 PM * Full Resuscitation Date Activated Date Inactivated Comments 11/28/2022 7:37 PM 12/24/2022 5:16 PM RN to verify Care Teams Building Construction Ironworker Relationship Specialty Start Date End Date Casimiro Simmons DO [address] [place] [address] PCP - General Family Medicine 12/25/22
[2025-04-22 16:46] LABS: NT Pro B Type Natriuretic Pept 205 pg/mL (19.9-100)
[2025-04-22 17:05] LABS: Glucose Point of Care 90 mg/dl (65-105)
[2025-04-22] MEDS: FUROSEMIDE INJ 40 MG/4 ML VIAL IV PUSH (17:14)
--- NOTE | 2025-04-22 17:22 | PC.NURSE ---
Female external caheter placed.
[2025-04-22] MEDS: AZITHROMYCIN 500 MG/NS 250 ML 500 MG/250 ML BAG 250 MG IVPB (22:59)
[2025-04-22 23:37] LABS: Glucose Point of Care 87 mg/dl (65-105)
--- NOTE | 2025-04-22 23:49 | P.HP_ITS ---
H&P: HPI History of Present Illness Date/Time: 04/22/25 23:49 Chief Complaint: Altered mental status Narrative: 59-year-old female with a past medical history of necrotizing fasciitis of the left leg status post debridement, morbid obesity with obstructive sleep apnea and intolerant to CPAP, bipolar disorder, generalized anxiety, hypothyroidism chronic lymphedema who presented to the ER via EMS from home due to altered mental status. On EMS arrival to patient's home the patient's blood sugars were 63 in the patient received 15 g of oral dextrose as well as 200 mL of D10. Glucose on arrival to the ER was 204. The patient denies any preceding symptoms to her hypoglycemic event. She is on Jardiance for ?swelling in her legs. She denies any known history of heart failure. She reports normal appetite recently and she thinks that her weight is been stable. She denies any nausea, vomiting, or changes in urinary frequency or urgency. She had reported some dysuria TV ER staff but I dysuria at the time of my evaluation. She had evidently been having urinary symptoms for several weeks. However, UA ER was unremarkable and not consistent with UTI. Patient did have a markedly elevated TSH. There is no documented hypoxia on the ER records but patient has CTA obtained due to hypoxia which demonstrated left basilar atelectasis versus pneumonia. Patient had some secretions in the left main bronchus and markedly enlarged thyroid gland with slight narrowing of the trachea. She had dilated esophagus but denied any symptoms of GERD or history of esophagitis. She denies prior history of echocardiogram CT did demonstrate moderate cardiomegaly. She denies any fevers or chills. She denies shortness of breath. On time of my exam patient did have some coarse upper respiratory sounds but that cleared with cough. She reports that she ate breakfast as usual and took her medications prior to development of symptoms. She reports that her thyroid medications were recently adjusted but she does not know how much they were adjusted or how much she is taking at home. Her primary care physician is Dr. Londono at [facility] medical group. Review of Systems 2 Review of Systems: 12 systems were reviewed with pertinent positives and negatives per HPI. Except as documented in the HPI, all other systems were reviewed and are negative. The patient is alert oriented x4 she is not the best at providing a detailed history. [facility] Past Medical History Medical History (Updated 04/23/25 @ 02:59 by Georgia Black DO) Lymphedema Bilateral lower extremity Obstructive sleep apnea Intolerant to PAP therapy Morbid obesity with BMI of 45.0-49.9, adult Hypothyroidism Anxiety Hypertension Surgical History Surgical History History of bladder suspension procedure H/O hernia repair History of appendectomy H/O: hysterectomy History of section Hx of cholecystectomy Family History Family History Father Depression Acute myocardial infarction, Onset Age: 21 drug-cocaine Sibling Thyroid disorder Diabetes mellitus Sibling Family history of alcoholism Family history of diabetes mellitus in first degree relative Father Family history of coronary artery disease Hypertension Family history of hepatitis Family history of congestive heart failure Family history of heart disease in male family member before age 55 Mother Family history of lung disease Social History Social History (Updated 04/23/25 @ 03:03 by Georgia Black DO) Social History: The patient reports that she lives with her 2 sons. She is a former smoker and smoked 2 packs per day for 30 years but quit 2010. She rarely drinks alcohol only in moderation. She used to work in [employer] but is now on disability. She uses marijuana daily. Code status: Full code Surrogate decision maker: Shree (oldest son) Smoking packs per day: 2 Smoking cigarettes per day: 40.0 Years smoked: 30 Smoking pack-years: 60.00 Smoking status: Former smoker Second hand tobacco smoke exposure: No Smoking end date: 05/05/11 Alcohol intake: former Substance use type: marijuana Other substance usage details: smokes marijuana through the day per son Do You Feel Safe in your Home?: Yes Lack of Transportation: No Lack of Food: Never True Current Housing: I Have Housing Concerned About Future Housing: No Difficulty Paying Gas/Electric Bills: No Difficulty Paying for Meds: No Currently Unemployed: No Education: High School Diploma/GED Difficulty w/ Childcare or Family Care: No Living arrangements: with family Spiritual care concerns: No Meds Home Medications and Allergies Home Medications ?Medication ?Instructions ?Recorded ?Confirmed ?Type aripiprazole 10 mg tablet 10 mg PO DAILY 01/05/22 04/22/25 History duloxetine 60 mg capsule,delayed 60 mg PO DAILY 01/05/22 04/22/25 History release levothyroxine 200 mcg tablet 200 mcg PO DAILY #90 tabs 01/05/22 04/22/25 Rx levothyroxine 50 mcg tablet 50 mcg PO DAILY #90 tabs 01/05/22 04/22/25 Rx furosemide 20 mg tablet 20 mg PO QAM 03/10/22 04/22/25 History trazodone 50 mg tablet 50 mg PO QHS PRN sleep 03/10/22 04/22/25 History ibuprofen 800 mg tablet See Rx Instructions .Route 08/28/22 04/22/25 Rx .COMPLEX #90 tabs albuterol sulfate 90 mcg/actuation 2 puff inhalation Q4H PRN 10/03/22 04/22/25 Rx aerosol inhaler (Ventolin HFA) shortness of breath or wheezing #6.7 grams Allergies Allergy/AdvReac Type Severity Reaction Status Date / Time varenicline Allergy Unknown Verified 09/04/22 09:18 No Known Drug Allergies Allergy Unknown Verified 09/04/22 09:18 Vital Signs Vital Signs - 24 hr 04/22/25 13:13 04/22/25 13:28 04/22/25 15:58 Temperature Pulse Rate 60 60 Respiratory Rate 25 H 17 Blood Pressure 155/95 H 129/84 Pulse Oximetry 93 93 95 Oxygen Delivery Room Air Room Air 04/22/25 17:30 04/22/25 18:45 04/22/25 18:45 Temperature 97.0 F L Pulse Rate 52 L 60 60 Respiratory Rate 20 17 Blood Pressure 129/70 Pulse Oximetry 97 95 Oxygen Delivery Room Air 04/22/25 20:00 04/22/25 20:13 04/22/25 22:00 Temperature 97.0 F L 97.1 F L Pulse Rate 60 58 L 56 L Respiratory Rate 16 16 Blood Pressure 111/58 L 123/80 Pulse Oximetry 92 93 Oxygen Delivery Exam 2 Narrative: Weight 151 kg BMI 49.2 Const: Other: Morbidly obese, no acute distress, appears stated age HENMT: Other: Markedly crowded posterior oropharynx, edentulous in upper and lower jaw, no oral pharyngeal erythema Eyes: Other: Pupils are equal and reactive, no scleral icterus, mildly injected sclera bilaterally Neck: Other: Large neck circumference, no JVD, large thyroid Resp: Other: Coarse breath sounds initially but breath sounds cleared with cough, no tachypnea, no increased work of breathing Cardio: Other: Mild bradycardia, regular rhythm, no JVD, no murmur GI: Other: Obese, soft, nontender : Other: Pure wick catheter in place Skin: Other: Chronic venous stasis changes with lymphedema and lipedema bilateral lower extremities right greater than left with chronic scarring to the posterior left calf, with edema noted up into the thighs as well that is nonpitting Neuro: Other: Alert oriented x4, speech is clear, no facial asymmetry, moves all extremities equally Extrem: Other: No clubbing, no cyanosis, chronic edematous changes as mentioned above Psych: Other: Flat affect, cooperative, fair judgment and insight H&P: Results Labs Labs: Laboratory Tests 04/22/25 14:06 04/22/25 14:06 04/22/25 04/22/25 04/22/25 13:29 13:43 14:06 WBC 5.8 RBC 5.54 H Hgb 14.2 Hct 46.7 MCV 84.3 MCH 25.6 L MCHC 30.4 L RDW 16.8 H Plt Count 175 MPV 10.0 Immature Gran % (Auto) 0.3 Neut % (Auto) 70.8 Lymph % (Auto) 23.0 Calvert % (Auto) 5.0 Eos % (Auto) 0.2 Baso % (Auto) 0.7 Lymph # (Auto) 1.33 Calvert # (Auto) 0.3 Eos # (Auto) 0.0 Baso # (Auto) 0.0 Abs Immat Gran (auto) 0.02 Absolute Neuts (auto) 4.1 Absolute Nucleated RBC 0.000 Nucleated RBC % 0.0 PT 12.9 INR 1.0 APTT 28.7 Puncture Site Right radial ABG pH 7.416 ABG pCO2 40.5 ABG pO2 60.2 L ABG PO2/FiO2 Ratio 2.87 ABG HCO3 25.4 ABG O2 Saturation 91.5 L ABG O2 Content 18.9 ABG Base Excess 0.9 A-a Gradient 41.0 Oxyhemoglobin 87.5 L* Total Hemoglobin 15.4 O2 Delivery Device Room air O2 Liters/Min Not Reportable FiO2 21 Sodium 137 Potassium 3.6 Chloride 101 Carbon Dioxide 27 Anion Gap 9 BUN 17 Creatinine 0.87 Estim Creat Clear Calc 95 Estimated GFR > 60 Glucose 157 H POC Capillary Glucose 204 H Calcium 9.4 Total Bilirubin 0.8 AST 19 ALT 15 Alkaline Phosphatase 74 Ammonia < 9 L Total Creatine Kinase 35 Troponin I < 0.012 NT-Pro-B Natriuret Pep 205 H Total Protein 7.7 Albumin 4.1 TSH 51.900 H Urine Color Yellow Urine Appearance Clear Urine pH 6.5 Ur Specific Str[place] 1.006 Urine Protein Negative Urine Glucose (UA) 2+ H Urine Ketones Negative Ur Blood (Man) Negative Urine Nitrate Negative Urine Bilirubin Negative Urine Urobilinogen 0.2 Leukocyte Esterase Rfl Negative Urine Opiates Screen Negative Urine Methadone Screen Negative Ur Barbiturates Screen Negative Ur Phencyclidine Scrn Negative Ur Amphetamine Screen Negative U Benzodiazepines Scrn Negative Urine Cocaine Screen Negative U Cannabinoids Screen Positive A Ethyl Alcohol < 10 04/22/25 04/22/25 17:02 23:33 WBC RBC Hgb Hct MCV MCH MCHC RDW Plt Count MPV Immature Gran % (Auto) Neut % (Auto) Lymph % (Auto) Calvert % (Auto) Eos % (Auto) Baso % (Auto) Lymph # (Auto) Calvert # (Auto) Eos # (Auto) Baso # (Auto) Abs Immat Gran (auto) Absolute Neuts (auto) Absolute Nucleated RBC Nucleated RBC % PT INR APTT Puncture Site ABG pH ABG pCO2 ABG pO2 ABG PO2/FiO2 Ratio ABG HCO3 ABG O2 Saturation ABG O2 Content ABG Base Excess A-a Gradient Oxyhemoglobin Total Hemoglobin O2 Delivery Device O2 Liters/Min FiO2 Sodium Potassium Chloride Carbon Dioxide Anion Gap BUN Creatinine Estim Creat Clear Calc Estimated GFR Glucose POC Capillary Glucose 90 87 Calcium Total Bilirubin AST ALT Alkaline Phosphatase Ammonia Total Creatine Kinase Troponin I NT-Pro-B Natriuret Pep Total Protein Albumin TSH Urine Color Urine Appearance Urine pH Ur Specific Stroud Urine Protein Urine Glucose (UA) Urine Ketones Ur Blood (Man) Urine Nitrate Urine Bilirubin Urine Urobilinogen Leukocyte Esterase Rfl Urine Opiates Screen Urine Methadone Screen Ur Barbiturates Screen Ur Phencyclidine Scrn Ur Amphetamine Screen U Benzodiazepines Scrn Urine Cocaine Screen U Cannabinoids Screen Ethyl Alcohol Impressions Head CT 04/22/25 14:51 Impression: No significant abnormality seen. Chest X-Ray 04/22/25 15:14 IMPRESSION: Bibasilar pneumonia. Highly suggestive cardiomegaly with cardiac decompensation and pulmonary edema. Clinical correlation advised. Chest CTA 04/22/25 15:23 IMPRESSION: 1. No pulmonary embolism. 2. Left basilar atelectasis versus pneumonia. 3. Enlarged thyroid gland with slight narrowing of the trachea. 4. Dilated esophagus. Further evaluation advised. 5. Left adrenal mass. Further evaluation advised with MRI. 6. Multiple hypodensities in the spleen. Follow-up advised. 7. Moderate cardiomegaly. EKG:Test Date: 2025-04-22 13:41:40 Measurements Intervals [place] Rate: 53 P: 23 KS: 175 QRS: 70 QRSD: 101 T: 7 QT: 436 QTc: 412 Interpretive Statements SINUS BRADYCARDIA INCOMPLETE RIGHT BUNDLE BRANCH BLOCK CONSIDER ANTERIOR INFARCT, AGE INDETERMINATE MODERATE T-WAVE ABNORMALITY, CONSIDER ANTEOSEPTAL ISCHEMIA BASELINE ARTIFACT- I, II, III, AVR, AVL, AVF, V1, V4-V6 ABNORMAL ECG No previous ECG available for comparison All imaging and EKGs personally reviewed and interpreted. And unless stated otherwise agree with radiologic and cardiology interpretation. Assessment and Plan Assessment and plan (1) Hypothyroidism: Qualifiers: Hypothyroidism type: acquired Qualified Code(s): E03.9 - Hypothyroidism, unspecified Code(s): E03.9 - Hypothyroidism, unspecified Status: Acute (2) Cardiomegaly: Code(s): I51.7 - Cardiomegaly Status: Acute (3) Goiter diffuse: Code(s): E04.0 - Nontoxic diffuse goiter Status: Acute (4) Hypoglycemia: Code(s): E16.2 - Hypoglycemia, unspecified Status: Acute (5) Morbid obesity with BMI of 45.0-49.9, adult: Code(s): E66.01 - Morbid (severe) obesity due to excess calories; Z68.42 - Body mass index [BMI] 45.0-49.9, adult Status: Acute (6) Lymphedema: Code(s): I89.0 - Lymphedema, not elsewhere classified Status: Acute (7) Obstructive sleep apnea: Code(s): G47.33 - Obstructive sleep apnea (adult) (pediatric) Status: Acute Plan The patient has hypoglycemia likely due to her Jardiance for her probable CHF. Will hold Jardiance which incidentally isn't even on the patient's home med rec. Will place the patient on a consistent carbohydrate diet. Will check A1c with a.m. labs. Patient is episodes of hypoglycemia could theoretically also be due to her uncontrolled hypothyroidism. Will check T3 and free T4 with a.m. labs. Will resume the listed dose of levothyroxine on the patient's home med rec but we need to verify the dose with the patient's primary care physician. Patient did receive an additional 125 mcg x 1 although it looks like to in the computer it is because the patient refused the 1st dose. If it is verified the patient is truly on 250 mcg we probably need to increase the patient's levothyroxine by at least 50 mcg if not to 100 mcg in and repeat level in 4-6 weeks. Patient is not acutely confused and does not have evidence of myxedema coma at this time. Patient has a thyromegaly such that there is some compression of the trachea. Patient does not have any acute respiratory symptoms. Will obtain a thyroid ultrasound to further evaluate for underlying pathology. Will monitor Accu- Cheks a.c. HS. Hypoglycemia protocol has been ordered. The patient does have cardiomegaly on imaging at and peripheral edema pureed baseline cardiac function is not known. Patient did receive 1 dose of IV Lasix in the ER. On my review imaging does not suggest pulmonary edema or pulmonary vascular congestion. Will resume home Lasix and obtain echocardiogram to further evaluate cardiac structure and function. The patient did receive Rocephin and azithromycin in the ER after initial chest x-ray results. However CT results were less impressive with left basilar atelectasis versus pneumonia. Patient does not have white count fever or respiratory symptoms to suggest pneumonia. Will hold off on antibiotic therapy at this time. Patient does have dilated esophagus but denies any esophageal symptoms. Patient could have outpatient evaluation with EGD. Patient does have some adrenal nodules a left adrenal gland which radiology recommends MRI however due to the patient's body habitus I do not believe that the patient would fit into the MRI. Patient's blood pressures are stable and not demonstrating acute derangement. The patient would benefit from treatment of her obstructive sleep apnea but she declines BiPAP or CPAP due to claustrophobia. Patient's condition is stable and improved MEDICAL DECISION MAKING NARRATIVE -Spoke with the ED provider in detail regarding patient's evaluation, workup and management -Patient seen and examined at bedside -Collaborated with patient's nurse at the bedside in detail and addressed all concerns -Labs, electrolytes, radiology, investigations and test results reviewed -ED/Consult/Nursing/Ancilliary notes on the chart reviewed and appreciated -Spoke with patient/family at the bedside and answered all the questions. Patient has been admitted as observation status. Quality VTE Prophylaxis VTE prophylaxis: pharmacologic ordered (Lovenox 40 mg subQ q.12 hours (q.12 hours dosing due to BMI greater than 40)) Hospitalist MIPS Advance Care Plan I have confirmed that the patient's Advanced Care Plan is present, code status is documented, or surrogate decision maker is listed in patient medical record.: Yes Medication Reconciliation I have utilized all available resources to obtain, update and review the patients current medications (includes all prescriptions, OTC, herbals, cannabis, and nutritional supplements).: Yes
[2025-04-23] VITALS (9 sets, daily range): BP systolic 110–136; BP diastolic 65–78; PULSE 49–60; RESP 16–20; TEMP 36.4–36.8; O2SAT 93–95
--- NOTE | 2025-04-23 | ECHO_ITS ---
Patient Info Name: Angie Brannon Age: 59 years : 1965 Gender: Female Ht: 69 in Wt: 332 lbs BSA: 2.79 m2 HR: 58 bpm BP: 126 / 78 mmHg Heart Rhythm: Sinus Rhythm Technical Quality: Poor Exam Date: 04/23/2025 8:43 AM Patient Status: I Admit Date: 04/24/2025 Exam Type: CA echo dop color flow w con Complete two-dimensional, color flow and Doppler transthoracic echocardiogram is performed with contrast to opacify the left ventricle and to improve the deliniation of the left ventricle endocardial borders. Staff Referring Physician: Georgia Black DO Leaf Stamper: Juliet Whittaker Attending Provider: Bennett Velazquez Contrast/Agitated Saline Contrast/Ag. Saline: Definity Amount: 2.00 ml Administered By: Juliet Whittaker Existing IV Access: Yes IV Access Condition: patent with no signs of infiltration Reason for Poor Study: patient body habitus Summary 1. Concentric left ventricular hypertrophy with normal systolic function and grade 1 diastolic noncompliance. 2. Left atrial enlargement. 3. No significant valve dysfunction. Left Ventricle Left ventricular chamber dimension is normal. Left ventricular systolic function is normal, estimated at 60-65. There is moderate concentric increased left ventricular wall thickness. The left ventricular diastolic function is grade I diastolic dysfunction. Right Ventricle Right ventricular chamber dimension is normal. Left Atria Left atrial chamber dimension is mildly enlarged. Right Atria Right atrial chamber dimension is normal. Aortic Valve The aortic valve is not well visualized. There is mild aortic valve sclerosis. Pulmonic Valve The pulmonic valve is not well visualized. Mitral Valve The mitral valve has normal leaflets. Tricuspid Valve The tricuspid valve leaflets are normal. Pericardium/Pleural The pericardium appears normal. Aorta The aortic root size at the sinus of Valsalva is normal. Left Ventricular Outflow Tract Name Value Normal LVOT 2D LVOT Diameter 2.0 cm LVOT Doppler LVOT Peak Velocity 148 cm/s LVOT Peak Gradient 9 mmHg LVOT Mean Gradient 5 mmHg LVOT VTI 33 cm LVOT VTI/AV VTI Ratio 0.9 LVOT Stroke Volume 107 ml LVOT CO 5.2 l/min LVOT CI 1.9 l/min/m2 Pulmonic Valve Name Value Normal RVOT Doppler RVOT Peak Velocity 102 cm/s RVOT Peak Gradient 4 mmHg PV Doppler PV Peak Velocity 110 cm/s PV Peak Gradient 5 mmHg Mitral Valve Name Value Normal MV Doppler MV Peak Gradient 3 mmHg MV Mean Gradient 1 mmHg MV Area (Cont Eq VTI) 2.9 cm2 MV Diastolic Function MV E Peak Velocity 72 cm/s MV A Peak Velocity 82 cm/s MV E/A 0.9 MV Decel Time (PW) 408 ms MV Annular TDI MV E/e' (Septal) 10.1 MV E/e' (Lateral) 7.8 MV E/e' (Average) 8.9 Tricuspid Valve Name Value Normal TV Annular TDI TV Lateral Liane s' Velocity 16.4 cm/s >=9.5 Aortic Valve Name Value Normal AV Doppler AV Peak Velocity 175 cm/s AV Peak Gradient 12 mmHg AV Mean Gradient 6 mmHg AV VTI 36 cm AV Area (Cont Eq VTI) 3.0 cm2 >=3.0 AV Area (Cont Eq Miguel) 2.7 cm2 AV DI (Miguel) 0.85 AV Regurgitation 2D LVOT Area 3.2 cm2 Ventricles Name Value Normal LV Dimensions 2D/MM IVS Diastolic Thickness (2D) 0.9 cm 0.6-1.0 LVID Diastole (2D) 5.4 cm 3.8-5.2 LVIW Diastolic Thickness (2D) 1.3 cm 0.6-0.9 LVID Systole (2D) 3.4 cm 2.2-3.5 LVOT Diameter 2.0 cm LV Mass (2D Cubed) 241.95 g 67.00-162.00 LV Mass Index (2D Cubed) 87 g/m2 43-95 Relative Wall Thickness (2D) 0.48 <=0.42 LV Fractional Shortening/Ejection Fraction 2D/MM LV Fractional Shortening (2D) 37 % 27-45 LV EF (2D Teichholz) 67 % LV Diastolic Volume (4C MOD) 79 ml LV EF (4C MOD) 62 % LV Diastolic Volume (2C MOD) 60 ml LV EF (2C MOD) 70 % LV Diastolic Volume (BP MOD) 74 ml 46-106 LV Diastolic Volume Index (BP MOD) 27 ml/m2 29-61 LV Systolic Volume (BP MOD) 25 ml 14-42 LV Systolic Volume Index (BP MOD) 9 ml/m2 8-24 LV EF (BP MOD) 66 % 54-74 LV Diastolic Length (4C) 7.9 cm LV Systolic Length (4C) 6.8 cm LV Stroke Volume (4C MOD) 49 ml Atria Name Value Normal LA Dimensions LA Volume (4C A-L) 101 ml LA Volume (BP A-L) 74 ml RA Dimensions RA Systolic Major [place] Length (4C) 6.7 cm 2.2-2.8 RA Area (4C) 21.6 cm2 <=18.0 Report Signatures
[2025-04-23] MEDS: LEVOTHYROXINE SODIUM 125 MCG TABLET PO (00:44)
[2025-04-23] MEDS: LEVOTHYROXINE SODIUM 50 MCG TABLET PO (06:06)
[2025-04-23] MEDS: LEVOTHYROXINE SODIUM 100 MCG TABLET 200 MCG PO (06:06)
[2025-04-23 07:58] LABS: Glucose Point of Care 82 mg/dl (65-105)
[2025-04-23] MEDS: ARIPiprazole 10 MG TABLET PO (08:31)
[2025-04-23] MEDS: FUROSEMIDE 20 MG TABLET PO (08:31)
[2025-04-23] MEDS: DULoxetine HCL 60 MG CAPSULE.DR PO (08:31)
[2025-04-23] MEDS: ENOXAPARIN 40 MG/0.4 ML SYRINGE SUB-Q ×2 (08:32→21:11)
[2025-04-23 08:42] LABS: Basophils Absolute Auto 0.1 K/mm3 (0.0-0.1); Basophils Percent Auto 0.9 % (0.2-1.2); Eosinophils Percent Auto 0.2 % (0-4.4); Hematocrit 46.9 % (37.0-47.0); Hemoglobin 14.2 g/dL (12.0-15.0); Immature Granulocyte Absolute 0.07 K/mm3 (0.00-0.031); Immature Granulocyte Percent A 1.3 % (0-0.5); Lymphocytes Percent Auto 27.4 % (18.3-44.2); Mean Corpuscular HGB Conc 30.3 g/dl (32-36); Mean Corpuscular Hemoglobin 25.8 pg (26-34); Mean Corpuscular Volume 85.3 fl (80-100); Mean Platelet Volume 9.9 fl (7.4-10.4); Monocytes Absolute Auto 0.3 K/mm3 (0.1-0.6); Monocytes Percent Auto 5.5 % (2.6-8.5); Neutrophils Absolute Auto 3.5 K/mm3 (1.3-6.7); Neutrophils Percent Auto 64.7 % (45.5-73.1); Platelet Count Result 170 k/mm3 (150-375); Red Cell Distribution Width 16.8 % (11.5-14.5); White Blood Count 5.5 K/mm3 (4.5-10.0)
[2025-04-23 09:05] LABS: Alanine Aminotransferase 9 U/L (6-35); Albumin Level 3.9 g/dL (3.5-5.1); Alkaline Phosphatase 84 U/L (38-126); Anion Gap 6 mmol/L (4-12); Aspartate Amino Transferase 19 U/L (14-36); Bilirubin,Total 0.8 mg/dL (0.2-1.3); Blood Urea Nitrogen 18 mg/dL (7-17); Calcium 9.3 mg/dL (8.4-10.2); Carbon Dioxide 31 mmol/L (22-30); Chloride 98 mmol/L (98-107); Estimated CRCL calculation 81 ml/min; Estimated Glomerular Filt Rate 54; Glucose 81 mg/dL (65-110); Magnesium 2.3 mg/dL (1.6-2.3); Potassium 4.6 mmol/L (3.4-5.0); Sodium 135 mmol/L (137-145); Total Protein 7.5 g/dL (6.3-8.2)
[2025-04-23 09:12] LABS: Free T4 Free Thyroxine 1.06 ng/dL (0.78-2.19)
[2025-04-23 09:20] LABS: Vitamin D 25 Hydroxy 13.2 ng/mL
[2025-04-23] MEDS: PERFLUTREN LIPID MICROSPHERES 1.5 ML VIAL DILUTED TO 10 ML TOTAL VOLUME IV PUSH (09:30)
[2025-04-23 09:36] LABS: Total Triiodothyronine (T3) 0.64 NG/ML (0.82-1.58)
[2025-04-23] MEDS: ERGOCALCIFEROL (VITAMIN D2) 1,250 MCG (50,000 UNITS) CAPSULE 1250 MCG PO (10:52)
--- NOTE | 2025-04-23 11:29 | P.PNIM_ITS ---
Progress Note: A&P Assessment and Plan (1) Hypothyroidism: Qualifiers: Hypothyroidism type: acquired Qualified Code(s): E03.9 - Hypothyroidism, unspecified Code(s): E03.9 - Hypothyroidism, unspecified Status: Acute Assessment and Plan: * TSH 51.900, Free T4 1.06, Total T3 0.64. * Increase Levothyroxine 275 mcg PO daily. * Chest CTA showed: di * Thyroid ultrasound FINDINGS: The right thyroid lobe measures 6.9 x 2.7 x 3.2 cm. The left thyroid lobe measures 2.4 x 2.3 cm in transaxial dimensions. The length of the left thyroid lobe which measures approximately 5.5 cm on the prior CT is unable to be assessed on the current ultrasound as there is significant intrathoracic extension of the inferior left thyroid which is obscured by the clavicles and manubrium. There is a diffuse heterogeneous hypoechoic pseudonodular appearance to the thyroid with coarsened echotexture and increased vascular flow on color Doppler. No discrete nodules identified. IMPRESSION: 1. Enlarged and heterogeneously hypoechoic thyroid with pseudonodular appearance typical of Demetrio's/lymphocytic thyroiditis. * Patient will need to follow up with endocrinology outpatient. * Patient does have dilated esophagus but denies any esophageal symptoms. Patient could have outpatient evaluation with EGD. (2) Adrenal mass 1 cm to 4 cm in diameter: Code(s): E27.8 - Other specified disorders of adrenal gland Status: Acute Assessment and Plan: * Left adrenal mass measuring 3.2 cm on Chest CTA. Further evaluation advised with an MRI. Due to the patient's body habitus I do not believe that patient will fit into the MRI. * Patient's blood pressures are stable and not demonstrating acute derangement. * Check Aldosterone Renin Act Ratio and random cortisol. * Will have patient follow up outpatient with Endocrinology. (3) Cardiomegaly: Code(s): I51.7 - Cardiomegaly Status: Acute Assessment and Plan: * Chest X-ray showed highly suggestive cardiomegaly with cardiac decompensation and pulmonary edema. * Chest CTA showed moderate Cardiomegaly. * Echocardiogram ordered. (4) Goiter diffuse: Code(s): E04.0 - Nontoxic diffuse goiter Status: Acute Assessment and Plan: * Thyroid ultrasound FINDINGS: The right thyroid lobe measures 6.9 x 2.7 x 3.2 cm. The left thyroid lobe measures 2.4 x 2.3 cm in transaxial dimensions. The length of the left thyroid lobe which measures approximately 5.5 cm on the prior CT is unable to be assessed on the current ultrasound as there is significant intrathoracic extension of the inferior left thyroid which is obscured by the clavicles and manubrium. There is a diffuse heterogeneous hypoechoic pseudonodular appearance to the thyroid with coarsened echotexture and increased vascular flow on color Doppler. No discrete nodules identified. IMPRESSION: 1. Enlarged and heterogeneously hypoechoic thyroid with pseudonodular appearance typical of Demetrio's/lymphocytic thyroiditis. * Patient will need to follow up with endocrinology outpatient. (5) Hypoglycemia: Code(s): E16.2 - Hypoglycemia, unspecified Status: Acute Assessment and Plan: * HgbA1C 5.0%. * Jardiance held. * Blood sugar running in the 80's. (6) Morbid obesity with BMI of 45.0-49.9, adult: Code(s): E66.01 - Morbid (severe) obesity due to excess calories; Z68.42 - Body mass index [BMI] 45.0-49.9, adult Status: Acute Assessment and Plan: * HgbA1c 5.0%. * Heart Healthy diet. * PT/OT * Encourage activity. (7) Lymphedema: Code(s): I89.0 - Lymphedema, not elsewhere classified Status: Acute Assessment and Plan: * chronic (8) Obstructive sleep apnea: Code(s): G47.33 - Obstructive sleep apnea (adult) (pediatric) Status: Acute Assessment and Plan: * Intolerant to CPAP. * The patient would benefit from treatment of her obstructive sleep apnea but she declines BiPAP or CPAP due to claustrophobia. (9) Vitamin D deficiency: Code(s): E55.9 - Vitamin D deficiency, unspecified Status: Acute Assessment and Plan: * Vitamin D level 13.2. * Patient started on Ergocalciferol 50,000 units oral weekly. Subjective Date/time seen: 04/23/25 11:29 Interval history: Patient sitting up in bed. Patient denies chest pain, palpitations, headache, dizziness, nausea, or vomiting. Reports that she normally walks with a rollator walker. Review of Systems Review of Systems: All systems reviewed & are unremarkable except as noted in HPI and below Exam Const: General: comfortable and no acute distress Neck: Other: Large neck circumference, no JVD, large thyroid Resp: Effort & Inspection: normal respiratory effort Auscultation: diminished lung sounds Cardio: Rate: regular rate Rhythm: regular rhythm Other: Telemetry- SR 62. GI: GI Palp: Yes Soft to palpation Auscultation: normal bowel sounds Other: obese Skin: Other: Chronic venous stasis changes with lymphedema and lipedema bilateral lower extremities right greater than left with chronic scarring to the posterior left calf, with edema noted up into the thighs as well that is nonpitting Neuro: Speech: normal speech Extrem: Other: chronic edematous changes as mentioned above Psych: Mental Status: mental status grossly normal Affect: normal affect Objective Data Vital Signs Vital Signs: Vital Signs - 24 hr 04/22/25 13:13 04/22/25 13:28 04/22/25 15:58 Temperature Pulse Rate 60 60 Respiratory Rate 25 H 17 Blood Pressure 155/95 H 129/84 Pulse Oximetry 93 93 95 Oxygen Delivery Room Air Room Air 04/22/25 17:30 04/22/25 18:45 04/22/25 18:45 Temperature 97.0 F L Pulse Rate 52 L 60 60 Respiratory Rate 20 17 Blood Pressure 129/70 Pulse Oximetry 97 95 Oxygen Delivery Room Air 04/22/25 20:00 04/22/25 20:13 04/22/25 22:00 Temperature 97.0 F L 97.1 F L Pulse Rate 60 58 L 56 L Respiratory Rate 16 16 Blood Pressure 111/58 L 123/80 Pulse Oximetry 92 93 Oxygen Delivery 04/23/25 00:00 04/23/25 04:00 04/23/25 05:05 Temperature 97.9 F Pulse Rate 53 L 53 L 55 L Respiratory Rate 16 Blood Pressure 126/78 Pulse Oximetry 95 Oxygen Delivery 04/23/25 08:00 04/23/25 08:00 Temperature Pulse Rate 49 L Respiratory Rate Blood Pressure Pulse Oximetry Oxygen Delivery Room Air Intake/Output Intake/Output: Intake & Output 04/20/25 04/21/25 04/22/25 04/23/25 23:59 23:59 23:59 23:59 Intake Total 840 700 Output Total 600 200 Balance 240 500 Meds/Results Medications: Active Medications Generic Name Dose Route Start Last Admin Trade Name Freq PRN Reason Stop Dose Admin Acetaminophen 650 mg 04/22/25 16:47 Acetaminophen 325 Mg Tablet PO Q4H PRN Mild Pain (1-3) or Fever Aripiprazole 10 mg 04/23/25 09:00 04/23/25 08:31 Aripiprazole 10 Mg Tablet PO 10 mg DAILY JARRELL Administration Duloxetine HCl 60 mg 04/23/25 09:00 04/23/25 08:31 Duloxetine Hcl 60 Mg Capsule.Dr PO 60 mg DAILY JARRELL Administration Enoxaparin Sodium 40 mg 04/23/25 09:00 04/23/25 08:32 Enoxaparin 40 Mg/0.4 Ml Syringe SUB-Q 40 mg Q12HR JARRELL Administration Ergocalciferol 1,250 mcg 04/23/25 09:55 04/23/25 10:52 Ergocalciferol (Vitamin D2) 1,250 Mcg (50,000 Units) Capsule PO 1,250 mcg Th@0900 JARRELL Administration Furosemide 20 mg 04/23/25 09:00 04/23/25 08:31 Furosemide 20 Mg Tablet PO 20 mg QAM JARRELL Administration Ceftriaxone Sodium 1 gm in 50 mls @ 100 mls/hr 04/22/25 23:00 04/22/25 23:00 Rocephin 1 Gm/Ns 50 Ml IVPB Infused Q24H JARRELL Infusion Azithromycin 500 mg in 250 mls @ 250 mls/hr 04/22/25 23:00 04/22/25 23:59 Zithromax IVPB Infused Q24H JARRELL Infusion Levothyroxine Sodium 50 mcg 04/23/25 06:30 04/23/25 06:06 Levothyroxine Sodium 50 Mcg Tablet PO 50 mcg DAILY@0630 JARRELL Administration Levothyroxine Sodium 200 mcg 04/23/25 06:30 04/23/25 06:06 Levothyroxine Sodium 100 Mcg Tablet PO 200 mcg DAILY@0630 JARRELL Administration Radiology Results: ITS Impressions Head CT 04/22/25 14:51 Impression: No significant abnormality seen. Chest X-Ray 04/22/25 15:14 IMPRESSION: Bibasilar pneumonia. Highly suggestive cardiomegaly with cardiac decompensation and pulmonary edema. Clinical correlation advised. Chest CTA 04/22/25 15:23 IMPRESSION: 1. No pulmonary embolism. 2. Left basilar atelectasis versus pneumonia. 3. Enlarged thyroid gland with slight narrowing of the trachea. 4. Dilated esophagus. Further evaluation advised. 5. Left adrenal mass. Further evaluation advised with MRI. 6. Multiple hypodensities in the spleen. Follow-up advised. 7. Moderate cardiomegaly. Thyroid Ultrasound 04/23/25 09:14 IMPRESSION: 1. Enlarged and heterogeneously hypoechoic thyroid with pseudonodular appearance typical of Demetrio's/lymphocytic thyroiditis. Labs Labs: Laboratory Results - last 24 hr 04/22/25 04/22/25 04/22/25 13:29 13:43 14:06 WBC 5.8 RBC 5.54 H Hgb 14.2 Hct 46.7 MCV 84.3 MCH 25.6 L MCHC 30.4 L RDW 16.8 H Plt Count 175 MPV 10.0 Immature Gran % (Auto) 0.3 Neut % (Auto) 70.8 Lymph % (Auto) 23.0 [place] % (Auto) 5.0 Eos % (Auto) 0.2 Baso % (Auto) 0.7 Lymph # (Auto) 1.33 [place] # (Auto) 0.3 Eos # (Auto) 0.0 Baso # (Auto) 0.0 Abs Immat Gran (auto) 0.02 Absolute Neuts (auto) 4.1 Absolute Nucleated RBC 0.000 Nucleated RBC % 0.0 PT 12.9 INR 1.0 APTT 28.7 Puncture Site Right radial ABG pH 7.416 ABG pCO2 40.5 ABG pO2 60.2 L ABG PO2/FiO2 Ratio 2.87 ABG HCO3 25.4 ABG O2 Saturation 91.5 L ABG O2 Content 18.9 ABG Base Excess 0.9 A-a Gradient 41.0 Oxyhemoglobin 87.5 L* Total Hemoglobin 15.4 O2 Delivery Device Room air O2 Liters/Min Not Reportable FiO2 21 Sodium 137 Potassium 3.6 Chloride 101 Carbon Dioxide 27 Anion Gap 9 BUN 17 Creatinine 0.87 Estim Creat Clear Calc 95 Estimated GFR > 60 Glucose 157 H POC Capillary Glucose 204 H Hemoglobin A1c Calcium 9.4 Magnesium Total Bilirubin 0.8 AST 19 ALT 15 Alkaline Phosphatase 74 Ammonia < 9 L Total Creatine Kinase 35 Troponin I < 0.012 NT-Pro-B Natriuret Pep 205 H Total Protein 7.7 Albumin 4.1 Vitamin B12 Vitamin D 25-Hydroxy TSH 51.900 H Free T4 Total T3 Urine Color Yellow Urine Appearance Clear Urine pH 6.5 Ur Specific [place] 1.006 Urine Protein Negative Urine Glucose (UA) 2+ H Urine Ketones Negative Ur Blood (Man) Negative Urine Nitrate Negative Urine Bilirubin Negative Urine Urobilinogen 0.2 Leukocyte Esterase Rfl Negative Urine Opiates Screen Negative Urine Methadone Screen Negative Ur Barbiturates Screen Negative Ur Phencyclidine Scrn Negative Ur Amphetamine Screen Negative U Benzodiazepines Scrn Negative Urine Cocaine Screen Negative U Cannabinoids Screen Positive A Ethyl Alcohol < 10 04/22/25 04/22/25 04/23/25 17:02 23:33 04:16 WBC RBC Hgb Hct MCV MCH MCHC RDW Plt Count MPV Immature Gran % (Auto) Neut % (Auto) Lymph % (Auto) [place] % (Auto) Eos % (Auto) Baso % (Auto) Lymph # (Auto) [place] # (Auto) Eos # (Auto) Baso # (Auto) Abs Immat Gran (auto) Absolute Neuts (auto) Absolute Nucleated RBC Nucleated RBC % PT INR APTT Puncture Site ABG pH ABG pCO2 ABG pO2 ABG PO2/FiO2 Ratio ABG HCO3 ABG O2 Saturation ABG O2 Content ABG Base Excess A-a Gradient Oxyhemoglobin Total Hemoglobin O2 Delivery Device O2 Liters/Min FiO2 Sodium Potassium Chloride Carbon Dioxide Anion Gap BUN Creatinine Estim Creat Clear Calc Estimated GFR Glucose POC Capillary Glucose 90 87 Hemoglobin A1c 5.0 Calcium Magnesium Total Bilirubin AST ALT Alkaline Phosphatase Ammonia Total Creatine Kinase Troponin I NT-Pro-B Natriuret Pep Total Protein Albumin Vitamin B12 Vitamin D 25-Hydroxy TSH Free T4 Total T3 Urine Color Urine Appearance Urine pH Ur Specific [place] Urine Protein Urine Glucose (UA) Urine Ketones Ur Blood (Man) Urine Nitrate Urine Bilirubin Urine Urobilinogen Leukocyte Esterase Rfl Urine Opiates Screen Urine Methadone Screen Ur Barbiturates Screen Ur Phencyclidine Scrn Ur Amphetamine Screen U Benzodiazepines Scrn Urine Cocaine Screen U Cannabinoids Screen Ethyl Alcohol 04/23/25 04/23/25 07:48 08:18 WBC 5.5 RBC 5.50 H Hgb 14.2 Hct 46.9 MCV 85.3 MCH 25.8 L MCHC 30.3 L RDW 16.8 H Plt Count 170 MPV 9.9 Immature Gran % (Auto) 1.3 H Neut % (Auto) 64.7 Lymph % (Auto) 27.4 [place] % (Auto) 5.5 Eos % (Auto) 0.2 Baso % (Auto) 0.9 Lymph # (Auto) 1.50 [place] # (Auto) 0.3 Eos # (Auto) 0.0 Baso # (Auto) 0.1 Abs Immat Gran (auto) 0.07 H Absolute Neuts (auto) 3.5 Absolute Nucleated RBC 0.000 Nucleated RBC % 0.0 PT INR APTT Puncture Site ABG pH ABG pCO2 ABG pO2 ABG PO2/FiO2 Ratio ABG HCO3 ABG O2 Saturation ABG O2 Content ABG Base Excess A-a Gradient Oxyhemoglobin Total Hemoglobin O2 Delivery Device O2 Liters/Min FiO2 Sodium 135 L Potassium 4.6 Chloride 98 Carbon Dioxide 31 H Anion Gap 6 BUN 18 H Creatinine 1.04 H Estim Creat Clear Calc 81 Estimated GFR 54 L Glucose 81 POC Capillary Glucose 82 Hemoglobin A1c Calcium 9.3 Magnesium 2.3 Total Bilirubin 0.8 AST 19 ALT 9 Alkaline Phosphatase 84 Ammonia Total Creatine Kinase Troponin I NT-Pro-B Natriuret Pep Total Protein 7.5 Albumin 3.9 Vitamin B12 341.0 Vitamin D 25-Hydroxy 13.2 TSH Free T4 1.06 Total T3 0.64 L Urine Color Urine Appearance Urine pH Ur Specific [place] Urine Protein Urine Glucose (UA) Urine Ketones Ur Blood (Man) Urine Nitrate Urine Bilirubin Urine Urobilinogen Leukocyte Esterase Rfl Urine Opiates Screen Urine Methadone Screen Ur Barbiturates Screen Ur Phencyclidine Scrn Ur Amphetamine Screen U Benzodiazepines Scrn Urine Cocaine Screen U Cannabinoids Screen Ethyl Alcohol Quality VTE Prophylaxis VTE prophylaxis: pharmacologic ordered (Lovenox 40 mg subQ q.12 hours (q.12 hours dosing due to BMI greater than 40))
[2025-04-23 12:07] LABS: Glucose Point of Care 84 mg/dl (65-105)
--- NOTE | 2025-04-23 13:11 | IVDEFINITY ---
Prior to administration of IV Definity the patient was educated on the risks and benefits of the imaging enhancing agent including potential adverse side effects. The patient verbalized understanding. Allergies were verified. No exclusion criteria were identified and at least one of the following inclusion criteria were met: 1) physician request, 2) patient technically difficult to image (per the [place] [employer] guidelines of two or more segments not discernable within the apical view), or 3) questionable left ventricular function. ?
[2025-04-23 17:10] LABS: Glucose Point of Care 88 mg/dl (65-105)
[2025-04-23] MEDS: AZITHROMYCIN 500 MG/NS 250 ML 500 MG/250 ML BAG 250 MG IVPB (22:49)
[2025-04-24] VITALS (10 sets, daily range): BP systolic 124–140; BP diastolic 57–79; PULSE 52–81; RESP 16–20; TEMP 36.1–36.8; O2SAT 90–93
[2025-04-24 05:18] LABS: Basophils Absolute Auto 0.1 K/mm3 (0.0-0.1); Basophils Percent Auto 1.2 % (0.2-1.2); Eosinophils Percent Auto 0.2 % (0-4.4); Hematocrit 47.8 % (37.0-47.0); Hemoglobin 14.4 g/dL (12.0-15.0); Immature Granulocyte Absolute 0.03 K/mm3 (0.00-0.031); Immature Granulocyte Percent A 0.6 % (0-0.5); Lymphocytes Absolute Auto 1.46 K/mm3 (0.9-3.2); Lymphocytes Percent Auto 28.5 % (18.3-44.2); Mean Corpuscular HGB Conc 30.1 g/dl (32-36); Mean Corpuscular Hemoglobin 25.6 pg (26-34); Mean Corpuscular Volume 84.9 fl (80-100); Mean Platelet Volume 10.1 fl (7.4-10.4); Monocytes Absolute Auto 0.3 K/mm3 (0.1-0.6); Monocytes Percent Auto 5.8 % (2.6-8.5); Neutrophils Absolute Auto 3.3 K/mm3 (1.3-6.7); Neutrophils Percent Auto 63.7 % (45.5-73.1); Platelet Count Result 157 k/mm3 (150-375); Red Blood Count 5.63 M/mm3 (4.2-5.4); Red Cell Distribution Width 16.9 % (11.5-14.5); White Blood Count 5.1 K/mm3 (4.5-10.0)
[2025-04-24 05:34] LABS: Alanine Aminotransferase 12 U/L (6-35); Albumin Level 3.9 g/dL (3.5-5.1); Alkaline Phosphatase 79 U/L (38-126); Anion Gap 7 mmol/L (4-12); Aspartate Amino Transferase 18 U/L (14-36); Bilirubin,Total 0.7 mg/dL (0.2-1.3); Blood Urea Nitrogen 20 mg/dL (7-17); Calcium 9.4 mg/dL (8.4-10.2); Carbon Dioxide 28 mmol/L (22-30); Chloride 100 mmol/L (98-107); Estimated CRCL calculation 85 ml/min; Estimated Glomerular Filt Rate 58; Glucose 81 mg/dL (65-110); Magnesium 2.3 mg/dL (1.6-2.3); Potassium 4.4 mmol/L (3.4-5.0); Sodium 135 mmol/L (137-145); Total Protein 7.6 g/dL (6.3-8.2)
[2025-04-24 06:03] LABS: Cortisol Random 7.63 ug/dL
[2025-04-24] MEDS: LEVOTHYROXINE SODIUM 75 MCG TABLET PO (06:19)
[2025-04-24] MEDS: LEVOTHYROXINE SODIUM 100 MCG TABLET 200 MCG PO (06:19)
[2025-04-24] MEDS: DULoxetine HCL 60 MG CAPSULE.DR PO (08:22)
[2025-04-24] MEDS: ARIPiprazole 10 MG TABLET PO (08:22)
[2025-04-24] MEDS: FUROSEMIDE 20 MG TABLET PO ×2 (08:23→11:25)
[2025-04-24] MEDS: ENOXAPARIN 40 MG/0.4 ML SYRINGE SUB-Q ×2 (08:23→22:44)
[2025-04-24 08:33] LABS: Glucose Point of Care 68 mg/dl (65-105)
[2025-04-24 09:30] LABS: Glucose Point of Care 75 mg/dl (65-105)
--- NOTE | 2025-04-24 10:45 | P.PNIM_ITS ---
Progress Note: A&P Assessment and Plan (1) Hypothyroidism: Qualifiers: Hypothyroidism type: acquired Qualified Code(s): E03.9 - Hypothyroidism, unspecified Code(s): E03.9 - Hypothyroidism, unspecified Status: Acute Assessment and Plan: * TSH 51.900, Free T4 1.06, Total T3 0.64. * Increase Levothyroxine 200mcg PO daily. * Chest CTA showed: di * Thyroid ultrasound FINDINGS: The right thyroid lobe measures 6.9 x 2.7 x 3.2 cm. The left thyroid lobe measures 2.4 x 2.3 cm in transaxial dimensions. The length of the left thyroid lobe which measures approximately 5.5 cm on the prior CT is unable to be assessed on the current ultrasound as there is significant intrathoracic extension of the inferior left thyroid which is obscured by the clavicles and manubrium. There is a diffuse heterogeneous hypoechoic pseudonodular appearance to the thyroid with coarsened echotexture and increased vascular flow on color Doppler. No discrete nodules identified. IMPRESSION: 1. Enlarged and heterogeneously hypoechoic thyroid with pseudonodular appearance typical of Demetrio's/lymphocytic thyroiditis. * Patient will need to follow up with endocrinology outpatient. * Patient does have dilated esophagus but denies any esophageal symptoms. Patient could have outpatient evaluation with EGD. (2) Pneumonia: Code(s): J18.9 - Pneumonia, unspecified organism Status: Acute Assessment and Plan: * Chest CTA showed left basilar atelectasis versus pneumonia. * Incentive spirometer. * Son reports that at home they were having trouble keeping patients oxygen level up. Sa02 93% RA. * Azithromycin 500 mg IVPB daily. * Ceftriaxone 1 gram IVPB daily. * Trelegy 100-62.5-25 mcg 1 puff daily. * Apnea link overnight. (3) Adrenal mass 1 cm to 4 cm in diameter: Code(s): E27.8 - Other specified disorders of adrenal gland Status: Acute Assessment and Plan: * Left adrenal mass measuring 3.2 cm on Chest CTA. Further evaluation advised with an MRI. Due to the patient's body habitus I do not believe that patient will fit into the MRI. * Patient's blood pressures are stable and not demonstrating acute derangement. * Check Aldosterone Renin Act Ratio and random cortisol. * Will have patient follow up outpatient with Endocrinology. (4) Cardiomegaly: Code(s): I51.7 - Cardiomegaly Status: Acute Assessment and Plan: * Chest X-ray showed highly suggestive cardiomegaly with cardiac decompensation and pulmonary edema. * Chest CTA showed moderate Cardiomegaly. * Echocardiogram obtained, awaiting reading. (5) Goiter diffuse: Code(s): E04.0 - Nontoxic diffuse goiter Status: Acute Assessment and Plan: * Thyroid ultrasound FINDINGS: The right thyroid lobe measures 6.9 x 2.7 x 3.2 cm. The left thyroid lobe measures 2.4 x 2.3 cm in transaxial dimensions. The length of the left thyroid lobe which measures approximately 5.5 cm on the prior CT is unable to be assessed on the current ultrasound as there is significant intrathoracic extension of the inferior left thyroid which is obscured by the clavicles and manubrium. There is a diffuse heterogeneous hypoechoic pseudonodular appearance to the thyroid with coarsened echotexture and increased vascular flow on color Doppler. No discrete nodules identified. IMPRESSION: 1. Enlarged and heterogeneously hypoechoic thyroid with pseudonodular appearance typical of Demetrio's/lymphocytic thyroiditis. * Patient will need to follow up with endocrinology outpatient. (6) Hypoglycemia: Code(s): E16.2 - Hypoglycemia, unspecified Status: Acute Assessment and Plan: * HgbA1C 5.0%. * Jardiance held. * Blood sugar running in the 80's. * Blood sugar 68 this morning. After eating improved to 75>87. (7) Morbid obesity with BMI of 45.0-49.9, adult: Code(s): E66.01 - Morbid (severe) obesity due to excess calories; Z68.42 - Body mass index [BMI] 45.0-49.9, adult Status: Acute Assessment and Plan: * HgbA1c 5.0%. * Heart Healthy diet. * PT/OT * Encourage activity. (8) Lymphedema: Code(s): I89.0 - Lymphedema, not elsewhere classified Status: Acute Assessment and Plan: * chronic (9) Obstructive sleep apnea: Code(s): G47.33 - Obstructive sleep apnea (adult) (pediatric) Status: Acute Assessment and Plan: * Intolerant to CPAP. * The patient would benefit from treatment of her obstructive sleep apnea but she declines BiPAP or CPAP due to claustrophobia. (10) Vitamin D deficiency: Code(s): E55.9 - Vitamin D deficiency, unspecified Status: Acute Assessment and Plan: * Vitamin D level 13.2. * Patient started on Ergocalciferol 50,000 units oral weekly. Subjective Date/time seen: 04/24/25 10:45 Interval history: Patient sitting up in chair with son at bedside. Patient denies chest pain, palpitations, headache, dizziness, nausea, or vomiting. Review of Systems 2 Review of Systems: All systems reviewed & are unremarkable except as noted in HPI and below Exam Const: General: comfortable and no acute distress Resp: Effort & Inspection: normal respiratory effort Auscultation: diminished lung sounds Cardio: Rate: bradycardic Rhythm: regular rhythm Other: Telemetry- SB 58. GI: GI Palp: Yes Soft to palpation Auscultation: normal bowel sounds Other: obese Skin: Other: Chronic venous stasis changes with lymphedema and lipedema bilateral lower extremities right greater than left with chronic scarring to the posterior left calf, with edema noted up into the thighs as well that is nonpitting. Neuro: Speech: normal speech Extrem: General: no pedal edema Psych: Mental Status: mental status grossly normal Affect: normal affect Objective Data Vital Signs Vital Signs: Vital Signs - 24 hr 04/23/25 12:00 04/23/25 14:00 04/23/25 14:54 Temperature 97.5 F L Pulse Rate 55 L 56 L Respiratory Rate 20 Blood Pressure 136/66 Pulse Oximetry 95 Oxygen Delivery Room Air 04/23/25 16:00 04/23/25 19:57 04/23/25 20:00 Temperature 98.3 F Pulse Rate 59 L 60 59 L Respiratory Rate 17 Blood Pressure 110/65 Pulse Oximetry 93 Oxygen Delivery 04/24/25 00:00 04/24/25 04:00 04/24/25 05:04 Temperature 98.2 F Pulse Rate 59 L 53 L 52 L Respiratory Rate 18 Blood Pressure 130/70 Pulse Oximetry 93 Oxygen Delivery 04/24/25 08:00 04/24/25 08:00 04/24/25 08:22 Temperature Pulse Rate 58 L Respiratory Rate Blood Pressure Pulse Oximetry Oxygen Delivery Room Air Room Air Intake/Output Intake/Output: Intake & Output 04/21/25 04/22/25 04/23/25 04/24/25 23:59 23:59 23:59 23:59 Intake Total 840 3060 120 Output Total 600 1500 400 Balance 240 1560 -280 Meds/Results Medications: Active Medications Generic Name Dose Route Start Last Admin Trade Name Freq PRN Reason Stop Dose Admin Acetaminophen 650 mg 04/22/25 16:47 Acetaminophen 325 Mg Tablet PO Q4H PRN Mild Pain (1-3) or Fever Aripiprazole 10 mg 04/23/25 09:00 04/24/25 08:22 Aripiprazole 10 Mg Tablet PO 10 mg DAILY JARRELL Administration Duloxetine HCl 60 mg 04/23/25 09:00 04/24/25 08:22 Duloxetine Hcl 60 Mg Capsule.Dr PO 60 mg DAILY JARRELL Administration Enoxaparin Sodium 40 mg 04/23/25 09:00 04/24/25 08:23 Enoxaparin 40 Mg/0.4 Ml Syringe SUB-Q 40 mg Q12HR JARRELL Administration Ergocalciferol 1,250 mcg 04/23/25 09:55 04/23/25 10:52 Ergocalciferol (Vitamin D2) 1,250 Mcg (50,000 Units) Capsule PO 1,250 mcg Th@0900 JARRELL Administration Furosemide 20 mg 04/23/25 09:00 04/24/25 08:23 Furosemide 20 Mg Tablet PO 20 mg QAM JARRELL Administration Ceftriaxone Sodium 1 gm in 50 mls @ 100 mls/hr 04/22/25 23:00 04/23/25 22:52 Rocephin 1 Gm/Ns 50 Ml IVPB Infused Q24H JARRELL Infusion Azithromycin 500 mg in 250 mls @ 250 mls/hr 04/22/25 23:00 04/23/25 23:50 Zithromax IVPB Infused Q24H JARRELL Infusion Levothyroxine Sodium 200 mcg 04/23/25 06:30 04/24/25 06:19 Levothyroxine Sodium 100 Mcg Tablet PO 200 mcg DAILY@0630 JARRELL Administration Levothyroxine Sodium 75 mcg 04/24/25 06:30 04/24/25 06:19 Levothyroxine Sodium 75 Mcg Tablet PO 75 mcg DAILY@0630 JARRELL Administration Radiology Results: ITS Impressions Head CT 04/22/25 14:51 Impression: No significant abnormality seen. Chest X-Ray 04/22/25 15:14 IMPRESSION: Bibasilar pneumonia. Highly suggestive cardiomegaly with cardiac decompensation and pulmonary edema. Clinical correlation advised. Chest CTA 04/22/25 15:23 IMPRESSION: 1. No pulmonary embolism. 2. Left basilar atelectasis versus pneumonia. 3. Enlarged thyroid gland with slight narrowing of the trachea. 4. Dilated esophagus. Further evaluation advised. 5. Left adrenal mass. Further evaluation advised with MRI. 6. Multiple hypodensities in the spleen. Follow-up advised. 7. Moderate cardiomegaly. Thyroid Ultrasound 04/23/25 09:14 IMPRESSION: 1. Enlarged and heterogeneously hypoechoic thyroid with pseudonodular appearance typical of Demetrio's/lymphocytic thyroiditis. Labs Labs: Laboratory Results - last 24 hr 04/23/25 04/23/25 04/24/25 12:03 16:53 04:58 WBC 5.1 RBC 5.63 H Hgb 14.4 Hct 47.8 H MCV 84.9 MCH 25.6 L MCHC 30.1 L RDW 16.9 H Plt Count 157 MPV 10.1 Immature Gran % (Auto) 0.6 H Neut % (Auto) 63.7 Lymph % (Auto) 28.5 [place] % (Auto) 5.8 Eos % (Auto) 0.2 Baso % (Auto) 1.2 Lymph # (Auto) 1.46 [place] # (Auto) 0.3 Eos # (Auto) 0.0 Baso # (Auto) 0.1 Abs Immat Gran (auto) 0.03 Absolute Neuts (auto) 3.3 Absolute Nucleated RBC 0.000 Nucleated RBC % 0.0 Sodium 135 L Potassium 4.4 Chloride 100 Carbon Dioxide 28 Anion Gap 7 BUN 20 H Creatinine 0.98 Estim Creat Clear Calc 85 Estimated GFR 58 L Glucose 81 POC Capillary Glucose 84 88 Calcium 9.4 Magnesium 2.3 Total Bilirubin 0.7 AST 18 ALT 12 Alkaline Phosphatase 79 Total Protein 7.6 Albumin 3.9 Random Cortisol 7.63 04/24/25 04/24/25 08:28 09:27 WBC RBC Hgb Hct MCV MCH MCHC RDW Plt Count MPV Immature Gran % (Auto) Neut % (Auto) Lymph % (Auto) [place] % (Auto) Eos % (Auto) Baso % (Auto) Lymph # (Auto) [place] # (Auto) Eos # (Auto) Baso # (Auto) Abs Immat Gran (auto) Absolute Neuts (auto) Absolute Nucleated RBC Nucleated RBC % Sodium Potassium Chloride Carbon Dioxide Anion Gap BUN Creatinine Estim Creat Clear Calc Estimated GFR Glucose POC Capillary Glucose 68 75 Calcium Magnesium Total Bilirubin AST ALT Alkaline Phosphatase Total Protein Albumin Random Cortisol Quality VTE Prophylaxis VTE prophylaxis: pharmacologic ordered (Lovenox 40 mg subQ q.12 hours (q.12 hours dosing due to BMI greater than 40))
[2025-04-24] MEDS: amLODIPine BESYLATE 5 MG TABLET PO (11:25)
[2025-04-24] MEDS: GABAPENTIN 100 MG CAPSULE PO ×2 (11:25→18:35)
[2025-04-24 12:17] LABS: Glucose Point of Care 87 mg/dl (65-105)
[2025-04-24 17:12] LABS: Glucose Point of Care 87 mg/dl (65-105)
[2025-04-24 20:46] LABS: Glucose Point of Care 96 mg/dl (65-105)
[2025-04-24] MEDS: AZITHROMYCIN 500 MG/NS 250 ML 500 MG/250 ML BAG 250 MG IVPB (22:39)
[2025-04-25] VITALS (10 sets, daily range): BP systolic 130–145; BP diastolic 70–90; PULSE 54–62; RESP 18–20; TEMP 36.1–36.8; O2SAT 91–99
[2025-04-25 06:02] LABS: Basophils Absolute Auto 0.1 K/mm3 (0.0-0.1); Basophils Percent Auto 1.4 % (0.2-1.2); Eosinophils Percent Auto 0.7 % (0-4.4); Hematocrit 48.6 % (37.0-47.0); Hemoglobin 14.4 g/dL (12.0-15.0); Immature Granulocyte Absolute 0.01 K/mm3 (0.00-0.031); Immature Granulocyte Percent A 0.2 % (0-0.5); Lymphocytes Absolute Auto 1.31 K/mm3 (0.9-3.2); Lymphocytes Percent Auto 29.6 % (18.3-44.2); Mean Corpuscular HGB Conc 29.6 g/dl (32-36); Mean Corpuscular Hemoglobin 25.6 pg (26-34); Mean Corpuscular Volume 86.5 fl (80-100); Mean Platelet Volume 10.6 fl (7.4-10.4); Monocytes Absolute Auto 0.3 K/mm3 (0.1-0.6); Monocytes Percent Auto 6.6 % (2.6-8.5); Neutrophils Absolute Auto 2.7 K/mm3 (1.3-6.7); Neutrophils Percent Auto 61.5 % (45.5-73.1); Platelet Count Result 156 k/mm3 (150-375); Red Blood Count 5.62 M/mm3 (4.2-5.4); Red Cell Distribution Width 16.7 % (11.5-14.5); White Blood Count 4.4 K/mm3 (4.5-10.0)
[2025-04-25 06:18] LABS: Alanine Aminotransferase 11 U/L (6-35); Albumin Level 3.8 g/dL (3.5-5.1); Alkaline Phosphatase 77 U/L (38-126); Anion Gap 5 mmol/L (4-12); Aspartate Amino Transferase 18 U/L (14-36); Bilirubin,Total 0.7 mg/dL (0.2-1.3); Blood Urea Nitrogen 18 mg/dL (7-17); Calcium 9.3 mg/dL (8.4-10.2); Carbon Dioxide 32 mmol/L (22-30); Chloride 99 mmol/L (98-107); Estimated CRCL calculation 85 ml/min; Estimated Glomerular Filt Rate 58; Glucose 74 mg/dL (65-110); Magnesium 2.4 mg/dL (1.6-2.3); Potassium 4.3 mmol/L (3.4-5.0); Sodium 136 mmol/L (137-145); Total Protein 7.5 g/dL (6.3-8.2)
[2025-04-25] MEDS: LEVOTHYROXINE SODIUM 100 MCG TABLET 200 MCG PO (06:19)
[2025-04-25 06:32] LABS: Platelet Estimate Adequate (Adequate)
[2025-04-25 06:33] LABS: Schistocytes None Seen
[2025-04-25] MEDS: FLUTICASONE/UMECLIDIN/VILANTER 100-62.5-25 MCG ELLIPTA 1 PUFF INHALATION (07:51)
[2025-04-25 08:21] LABS: Glucose Point of Care 66 mg/dl (65-105)
[2025-04-25] MEDS: amLODIPine BESYLATE 5 MG TABLET PO (08:26)
[2025-04-25] MEDS: GABAPENTIN 100 MG CAPSULE PO ×2 (08:26→17:18)
[2025-04-25] MEDS: DULoxetine HCL 60 MG CAPSULE.DR PO (08:26)
[2025-04-25] MEDS: ARIPiprazole 10 MG TABLET PO (08:26)
[2025-04-25] MEDS: FUROSEMIDE 40 MG TABLET PO (08:26)
[2025-04-25] MEDS: ENOXAPARIN 40 MG/0.4 ML SYRINGE SUB-Q ×2 (08:29→21:13)
[2025-04-25 08:45] LABS: Glucose Point of Care 96 mg/dl (65-105)
--- NOTE | 2025-04-25 12:01 | P.PNIM_ITS ---
Progress Note: A&P Assessment and Plan (1) Hypothyroidism: Qualifiers: Hypothyroidism type: acquired Qualified Code(s): E03.9 - Hypothyroidism, unspecified Code(s): E03.9 - Hypothyroidism, unspecified Status: Acute Assessment and Plan: * TSH 51.900, Free T4 1.06, Total T3 0.64. * Increase Levothyroxine 200mcg PO daily. * Chest CTA showed: di * Thyroid ultrasound FINDINGS: The right thyroid lobe measures 6.9 x 2.7 x 3.2 cm. The left thyroid lobe measures 2.4 x 2.3 cm in transaxial dimensions. The length of the left thyroid lobe which measures approximately 5.5 cm on the prior CT is unable to be assessed on the current ultrasound as there is significant intrathoracic extension of the inferior left thyroid which is obscured by the clavicles and manubrium. There is a diffuse heterogeneous hypoechoic pseudonodular appearance to the thyroid with coarsened echotexture and increased vascular flow on color Doppler. No discrete nodules identified. IMPRESSION: 1. Enlarged and heterogeneously hypoechoic thyroid with pseudonodular appearance typical of Demetrio's/lymphocytic thyroiditis. * Patient will need to follow up with endocrinology outpatient. * Patient does have dilated esophagus but denies any esophageal symptoms. Patient could have outpatient evaluation with EGD. (2) Pneumonia: Code(s): J18.9 - Pneumonia, unspecified organism Status: Acute Assessment and Plan: * Chest CTA showed left basilar atelectasis versus pneumonia. * Incentive spirometer. * Son reports that at home they were having trouble keeping patients oxygen level up. Sa02 93% RA. * Azithromycin 500 mg IVPB daily. * Ceftriaxone 1 gram IVPB daily. * Trelegy 100-62.5-25 mcg 1 puff daily. * Apnea link overnight showed Oxygen Desaturation Index was 8.8. Saturation <=89 for 86 minutes, Saturation <=88% 43 minutes. * Recheck Apnea link 2 liters tonight. * Add Guaifenesin 600 mg PO BID. (3) Adrenal mass 1 cm to 4 cm in diameter: Code(s): E27.8 - Other specified disorders of adrenal gland Status: Acute Assessment and Plan: * Left adrenal mass measuring 3.2 cm on Chest CTA. Further evaluation advised with an MRI. Due to the patient's body habitus I do not believe that patient will fit into the MRI. * Patient's blood pressures are stable and not demonstrating acute derangement. * Check Aldosterone Renin Act Ratio and random cortisol. * Will have patient follow up outpatient with Endocrinology. (4) Cardiomegaly: Code(s): I51.7 - Cardiomegaly Status: Acute Assessment and Plan: * Chest X-ray showed highly suggestive cardiomegaly with cardiac decompensation and pulmonary edema. * Chest CTA showed moderate Cardiomegaly. * Echocardiogram obtained, awaiting reading. (5) Goiter diffuse: Code(s): E04.0 - Nontoxic diffuse goiter Status: Acute Assessment and Plan: * Thyroid ultrasound FINDINGS: The right thyroid lobe measures 6.9 x 2.7 x 3.2 cm. The left thyroid lobe measures 2.4 x 2.3 cm in transaxial dimensions. The length of the left thyroid lobe which measures approximately 5.5 cm on the prior CT is unable to be assessed on the current ultrasound as there is significant intrathoracic extension of the inferior left thyroid which is obscured by the clavicles and manubrium. There is a diffuse heterogeneous hypoechoic pseudonodular appearance to the thyroid with coarsened echotexture and increased vascular flow on color Doppler. No discrete nodules identified. IMPRESSION: 1. Enlarged and heterogeneously hypoechoic thyroid with pseudonodular appearance typical of Demetrio's/lymphocytic thyroiditis. * Patient will need to follow up with endocrinology outpatient. (6) Hypoglycemia: Code(s): E16.2 - Hypoglycemia, unspecified Status: Acute Assessment and Plan: * HgbA1C 5.0%. * Jardiance held. * Blood sugar 63 at lunch, food given and blood sugar increased to 102. (7) Morbid obesity with BMI of 45.0-49.9, adult: Code(s): E66.01 - Morbid (severe) obesity due to excess calories; Z68.42 - Body mass index [BMI] 45.0-49.9, adult Status: Acute Assessment and Plan: * HgbA1c 5.0%. * Heart Healthy diet. * PT/OT * Encourage activity. (8) Lymphedema: Code(s): I89.0 - Lymphedema, not elsewhere classified Status: Acute Assessment and Plan: * chronic (9) Obstructive sleep apnea: Code(s): G47.33 - Obstructive sleep apnea (adult) (pediatric) Status: Acute Assessment and Plan: * Intolerant to CPAP. * The patient would benefit from treatment of her obstructive sleep apnea but she declines BiPAP or CPAP due to claustrophobia. (10) Vitamin D deficiency: Code(s): E55.9 - Vitamin D deficiency, unspecified Status: Acute Assessment and Plan: * Vitamin D level 13.2. * Patient started on Ergocalciferol 50,000 units oral weekly. (11) Grade I diastolic dysfunction: Code(s): I51.89 - Other ill-defined heart diseases Status: Acute Assessment and Plan: * Amlodipine 5 mg PO daily. * Encourage activity and weight loss. Subjective Date/time seen: 04/25/25 12:01 Interval history: Patient sitting up in bed with son at bedside. Patient denies chest pain, palpitations, headache, dizziness, nausea, or vomiting. Patient coughing up thick clear sputum. Review of Systems Review of Systems: All systems reviewed & are unremarkable except as noted in HPI and below Exam Const: General: comfortable and no acute distress Resp: Effort & Inspection: normal respiratory effort Auscultation: diminished lung sounds Cardio: Rate: regular rate Rhythm: regular rhythm Other: Telemetry- SR 61. GI: GI Palp: Yes Soft to palpation Auscultation: normal bowel sounds Neuro: Speech: normal speech Extrem: General: no pedal edema Psych: Mental Status: mental status grossly normal Affect: normal affect Objective Data Vital Signs Vital Signs: Vital Signs - 24 hr 04/24/25 14:00 04/24/25 16:00 04/24/25 20:00 Temperature 98.3 F Pulse Rate 69 56 L 81 Respiratory Rate 16 20 Blood Pressure 129/78 Pulse Oximetry 91 90 Oxygen Delivery Room Air Fraction of Inspired Oxygen 04/24/25 20:00 04/24/25 20:57 04/24/25 20:57 Temperature 97 F L Pulse Rate 81 81 Respiratory Rate 20 Blood Pressure 124/57 L Pulse Oximetry 90 90 Oxygen Delivery Room Air Fraction of Inspired Oxygen 04/25/25 04:00 04/25/25 05:44 04/25/25 07:54 Temperature 97 F L Pulse Rate 56 L 60 Respiratory Rate 20 Blood Pressure 145/90 H Pulse Oximetry 99 91 Oxygen Delivery Room Air Fraction of Inspired Oxygen 04/25/25 08:00 04/25/25 08:30 Temperature Pulse Rate 59 L Respiratory Rate Blood Pressure Pulse Oximetry Oxygen Delivery Room Air Fraction of Inspired Oxygen Intake/Output Intake/Output: Intake & Output 04/22/25 04/23/25 04/24/25 04/25/25 23:59 23:59 23:59 23:59 Intake Total 840 3060 2960 880 Output Total 600 1500 1600 Balance 240 1560 1360 880 Meds/Results Medications: Active Medications Generic Name Dose Route Start Last Admin Trade Name Freq PRN Reason Stop Dose Admin Acetaminophen 650 mg 04/22/25 16:47 Acetaminophen 325 Mg Tablet PO Q4H PRN Mild Pain (1-3) or Fever Amlodipine Besylate 5 mg 04/24/25 11:20 04/25/25 08:26 Amlodipine Besylate 5 Mg Tablet PO 5 mg DAILY JARRELL Administration Aripiprazole 10 mg 04/23/25 09:00 04/25/25 08:26 Aripiprazole 10 Mg Tablet PO 10 mg DAILY JARRELL Administration Duloxetine HCl 60 mg 04/23/25 09:00 04/25/25 08:26 Duloxetine Hcl 60 Mg Capsule.Dr PO 60 mg DAILY JARRELL Administration Enoxaparin Sodium 40 mg 04/23/25 09:00 04/25/25 08:29 Enoxaparin 40 Mg/0.4 Ml Syringe SUB-Q 40 mg Q12HR JARRELL Administration Ergocalciferol 1,250 mcg 04/23/25 09:55 04/23/25 10:52 Ergocalciferol (Vitamin D2) 1,250 Mcg (50,000 Units) Capsule PO 1,250 mcg Th@0900 JARRELL Administration Fluticasone/Umeclidinium/Vilanterol 1 puff 04/24/25 12:00 04/25/25 10:00 Fluticasone/Umeclidin/Vilanter 100-62.5-25 Mcg Ellipta INHALATION Not Given DAILYRT JARRELL Furosemide 40 mg 04/25/25 09:00 04/25/25 08:26 Furosemide 40 Mg Tablet PO 40 mg DAILY JARRELL Administration Gabapentin 100 mg 04/24/25 11:20 04/25/25 08:26 Gabapentin 100 Mg Capsule PO 100 mg BID JARRELL Administration Ceftriaxone Sodium 1 gm in 50 mls @ 100 mls/hr 04/22/25 23:00 04/24/25 23:15 Rocephin 1 Gm/Ns 50 Ml IVPB Infused Q24H JARRELL Infusion Azithromycin 500 mg in 250 mls @ 250 mls/hr 04/22/25 23:00 04/24/25 23:40 Zithromax IVPB Infused Q24H JARRELL Infusion Levothyroxine Sodium 200 mcg 04/25/25 06:30 04/25/25 06:19 Levothyroxine Sodium 100 Mcg Tablet PO 200 mcg DAILY@0630 JARRELL Administration Radiology Results: ITS Impressions Head CT 04/22/25 14:51 Impression: No significant abnormality seen. Chest X-Ray 04/22/25 15:14 IMPRESSION: Bibasilar pneumonia. Highly suggestive cardiomegaly with cardiac decompensation and pulmonary edema. Clinical correlation advised. Chest CTA 04/22/25 15:23 IMPRESSION: 1. No pulmonary embolism. 2. Left basilar atelectasis versus pneumonia. 3. Enlarged thyroid gland with slight narrowing of the trachea. 4. Dilated esophagus. Further evaluation advised. 5. Left adrenal mass. Further evaluation advised with MRI. 6. Multiple hypodensities in the spleen. Follow-up advised. 7. Moderate cardiomegaly. Thyroid Ultrasound 04/23/25 09:14 IMPRESSION: 1. Enlarged and heterogeneously hypoechoic thyroid with pseudonodular appearance typical of Demetrio's/lymphocytic thyroiditis. Labs Labs: Laboratory Results - last 24 hr 04/24/25 04/24/25 04/24/25 12:13 17:06 20:32 WBC RBC Hgb Hct MCV MCH MCHC RDW Plt Count MPV Immature Gran % (Auto) Neut % (Auto) Lymph % (Auto) [place] % (Auto) Eos % (Auto) Baso % (Auto) Lymph # (Auto) [place] # (Auto) Eos # (Auto) Baso # (Auto) Abs Immat Gran (auto) Absolute Neuts (auto) Absolute Nucleated RBC Band Neutrophils % Nucleated RBC % Platelet Estimate Schistocytes Sodium Potassium Chloride Carbon Dioxide Anion Gap BUN Creatinine Estim Creat Clear Calc Estimated GFR Glucose POC Capillary Glucose 87 87 96 Calcium Magnesium Total Bilirubin AST ALT Alkaline Phosphatase Total Protein Albumin 04/25/25 04/25/25 04/25/25 05:23 07:54 08:43 WBC 4.4 L RBC 5.62 H Hgb 14.4 Hct 48.6 H MCV 86.5 MCH 25.6 L MCHC 29.6 L RDW 16.7 H Plt Count 156 MPV 10.6 H Immature Gran % (Auto) 0.2 Neut % (Auto) 61.5 Lymph % (Auto) 29.6 [place] % (Auto) 6.6 Eos % (Auto) 0.7 Baso % (Auto) 1.4 H Lymph # (Auto) 1.31 [place] # (Auto) 0.3 Eos # (Auto) 0.0 Baso # (Auto) 0.1 Abs Immat Gran (auto) 0.01 Absolute Neuts (auto) 2.7 Absolute Nucleated RBC 0.000 Band Neutrophils % Not Reportable Nucleated RBC % 0.0 Platelet Estimate Adequate Schistocytes None seen Sodium 136 L Potassium 4.3 Chloride 99 Carbon Dioxide 32 H Anion Gap 5 BUN 18 H Creatinine 0.98 Estim Creat Clear Calc 85 Estimated GFR 58 L Glucose 74 POC Capillary Glucose 66 96 Calcium 9.3 Magnesium 2.4 H Total Bilirubin 0.7 AST 18 ALT 11 Alkaline Phosphatase 77 Total Protein 7.5 Albumin 3.8 Quality VTE Prophylaxis VTE prophylaxis: pharmacologic ordered (Lovenox 40 mg subQ q.12 hours (q.12 hours dosing due to BMI greater than 40))
[2025-04-25 12:02] LABS: Glucose Point of Care 63 mg/dl (65-105)
[2025-04-25 12:49] LABS: Glucose Point of Care 102 mg/dl (65-105)
[2025-04-25] MEDS: polyethylene glycoL 3350 17 GM POWD.PACK PO (14:10)
[2025-04-25] MEDS: guaiFENesin 12 HR 600 MG TABCR PO ×2 (14:10→21:13)
[2025-04-25 16:53] LABS: Glucose Point of Care 93 mg/dl (65-105)
[2025-04-25] MEDS: AZITHROMYCIN 500 MG/NS 250 ML 500 MG/250 ML BAG 250 MG IVPB (23:11)
[2025-04-25 23:30] LABS: Glucose Point of Care 99 mg/dl (65-105)
[2025-04-26] VITALS (11 sets, daily range): BP systolic 126–135; BP diastolic 64–75; PULSE 53–76; RESP 16–20; TEMP 36.2–36.8; O2SAT 95–98
[2025-04-26 06:16] LABS: Basophils Absolute Auto 0.1 K/mm3 (0.0-0.1); Basophils Percent Auto 1.1 % (0.2-1.2); Hematocrit 49.2 % (37.0-47.0); Immature Granulocyte Absolute 0.02 K/mm3 (0.00-0.031); Immature Granulocyte Percent A 0.4 % (0-0.5); Lymphocytes Absolute Auto 1.16 K/mm3 (0.9-3.2); Lymphocytes Percent Auto 24.7 % (18.3-44.2); Mean Corpuscular HGB Conc 30.5 g/dl (32-36); Mean Corpuscular Volume 85.3 fl (80-100); Mean Platelet Volume 9.9 fl (7.4-10.4); Monocytes Absolute Auto 0.3 K/mm3 (0.1-0.6); Monocytes Percent Auto 6.2 % (2.6-8.5); Neutrophils Absolute Auto 3.2 K/mm3 (1.3-6.7); Neutrophils Percent Auto 67.6 % (45.5-73.1); Platelet Count Result 163 k/mm3 (150-375); Red Blood Count 5.77 M/mm3 (4.2-5.4); Red Cell Distribution Width 16.9 % (11.5-14.5); White Blood Count 4.7 K/mm3 (4.5-10.0)
[2025-04-26] MEDS: LEVOTHYROXINE SODIUM 100 MCG TABLET 200 MCG PO (06:17)
[2025-04-26 06:24] LABS: Glucose Point of Care 83 mg/dl (65-105)
[2025-04-26 06:30] LABS: Alanine Aminotransferase 12 U/L (6-35); Albumin Level 4.1 g/dL (3.5-5.1); Alkaline Phosphatase 76 U/L (38-126); Anion Gap 3 mmol/L (4-12); Aspartate Amino Transferase 18 U/L (14-36); Bilirubin,Total 0.7 mg/dL (0.2-1.3); Blood Urea Nitrogen 18 mg/dL (7-17); Calcium 9.6 mg/dL (8.4-10.2); Carbon Dioxide 37 mmol/L (22-30); Chloride 98 mmol/L (98-107); Estimated CRCL calculation 77 ml/min; Estimated Glomerular Filt Rate 51; Glucose 76 mg/dL (65-110); Magnesium 2.5 mg/dL (1.6-2.3); Sodium 138 mmol/L (137-145); Total Protein 7.7 g/dL (6.3-8.2)
[2025-04-26] MEDS: FLUTICASONE/UMECLIDIN/VILANTER 100-62.5-25 MCG ELLIPTA 1 PUFF INHALATION (08:08)
[2025-04-26 08:30] LABS: Glucose Point of Care 80 mg/dl (65-105)
[2025-04-26] MEDS: GABAPENTIN 100 MG CAPSULE PO ×2 (08:33→17:30)
[2025-04-26] MEDS: ENOXAPARIN 40 MG/0.4 ML SYRINGE SUB-Q ×2 (08:33→21:03)
[2025-04-26] MEDS: ARIPiprazole 10 MG TABLET PO (08:33)
[2025-04-26] MEDS: guaiFENesin 12 HR 600 MG TABCR PO ×2 (08:33→21:03)
[2025-04-26] MEDS: polyethylene glycoL 3350 17 GM POWD.PACK PO (08:33)
[2025-04-26] MEDS: FUROSEMIDE 40 MG TABLET PO (08:33)
[2025-04-26] MEDS: DULoxetine HCL 60 MG CAPSULE.DR PO (08:33)
[2025-04-26] MEDS: amLODIPine BESYLATE 5 MG TABLET PO (08:33)
[2025-04-26 12:06] LABS: Glucose Point of Care 118 mg/dl (65-105)
--- NOTE | 2025-04-26 13:05 | P.PNIM_ITS ---
Progress Note: A&P Assessment and Plan (1) Hypothyroidism: Qualifiers: Hypothyroidism type: acquired Qualified Code(s): E03.9 - Hypothyroidism, unspecified Code(s): E03.9 - Hypothyroidism, unspecified Status: Acute Assessment and Plan: * TSH 51.900, Free T4 1.06, Total T3 0.64. * Increase Levothyroxine 200mcg PO daily. * Chest CTA showed: di * Thyroid ultrasound FINDINGS: The right thyroid lobe measures 6.9 x 2.7 x 3.2 cm. The left thyroid lobe measures 2.4 x 2.3 cm in transaxial dimensions. The length of the left thyroid lobe which measures approximately 5.5 cm on the prior CT is unable to be assessed on the current ultrasound as there is significant intrathoracic extension of the inferior left thyroid which is obscured by the clavicles and manubrium. There is a diffuse heterogeneous hypoechoic pseudonodular appearance to the thyroid with coarsened echotexture and increased vascular flow on color Doppler. No discrete nodules identified. IMPRESSION: 1. Enlarged and heterogeneously hypoechoic thyroid with pseudonodular appearance typical of Demetrio's/lymphocytic thyroiditis. * Patient will need to follow up with endocrinology outpatient. * Patient does have dilated esophagus but denies any esophageal symptoms. Patient could have outpatient evaluation with EGD. (2) Pneumonia: Code(s): J18.9 - Pneumonia, unspecified organism Status: Acute Assessment and Plan: * Chest CTA showed left basilar atelectasis versus pneumonia. * Incentive spirometer. * Son reports that at home they were having trouble keeping patients oxygen level up. Sa02 93% RA. * Azithromycin 500 mg IVPB daily. * Ceftriaxone 1 gram IVPB daily. * Trelegy 100-62.5-25 mcg 1 puff daily. * Apnea link overnight showed Oxygen Desaturation Index was 8.8. Saturation <=89 for 86 minutes, Saturation <=88% 43 minutes. * Apnea link 2 liters last night with no dips in saturation. * Recheck apnea link with 1 liter overnight. * Guaifenesin 600 mg PO BID. (3) Adrenal mass 1 cm to 4 cm in diameter: Code(s): E27.8 - Other specified disorders of adrenal gland Status: Acute Assessment and Plan: * Left adrenal mass measuring 3.2 cm on Chest CTA. Further evaluation advised with an MRI. Due to the patient's body habitus I do not believe that patient will fit into the MRI. * Patient's blood pressures are stable and not demonstrating acute derangement. * Check Aldosterone Renin Act Ratio and random cortisol. * Will have patient follow up outpatient with Endocrinology. (4) Cardiomegaly: Code(s): I51.7 - Cardiomegaly Status: Acute Assessment and Plan: * Chest X-ray showed highly suggestive cardiomegaly with cardiac decompensation and pulmonary edema. * Chest CTA showed moderate Cardiomegaly. * Echocardiogram obtained, awaiting reading. (5) Goiter diffuse: Code(s): E04.0 - Nontoxic diffuse goiter Status: Acute Assessment and Plan: * Thyroid ultrasound FINDINGS: The right thyroid lobe measures 6.9 x 2.7 x 3.2 cm. The left thyroid lobe measures 2.4 x 2.3 cm in transaxial dimensions. The length of the left thyroid lobe which measures approximately 5.5 cm on the prior CT is unable to be assessed on the current ultrasound as there is significant intrathoracic extension of the inferior left thyroid which is obscured by the clavicles and manubrium. There is a diffuse heterogeneous hypoechoic pseudonodular appearance to the thyroid with coarsened echotexture and increased vascular flow on color Doppler. No discrete nodules identified. IMPRESSION: 1. Enlarged and heterogeneously hypoechoic thyroid with pseudonodular appearance typical of Demetrio's/lymphocytic thyroiditis. * Patient will need to follow up with endocrinology outpatient. (6) Hypoglycemia: Code(s): E16.2 - Hypoglycemia, unspecified Status: Acute Assessment and Plan: * HgbA1C 5.0%. * Jardiance held. * Blood sugars today running 83-118. (7) Morbid obesity with BMI of 45.0-49.9, adult: Code(s): E66.01 - Morbid (severe) obesity due to excess calories; Z68.42 - Body mass index [BMI] 45.0-49.9, adult Status: Acute Assessment and Plan: * HgbA1c 5.0%. * Heart Healthy diet. * PT/OT * Encourage activity. (8) Lymphedema: Code(s): I89.0 - Lymphedema, not elsewhere classified Status: Acute Assessment and Plan: * chronic (9) Obstructive sleep apnea: Code(s): G47.33 - Obstructive sleep apnea (adult) (pediatric) Status: Acute Assessment and Plan: * Intolerant to CPAP. * The patient would benefit from treatment of her obstructive sleep apnea but she declines BiPAP or CPAP due to claustrophobia. (10) Vitamin D deficiency: Code(s): E55.9 - Vitamin D deficiency, unspecified Status: Acute Assessment and Plan: * Vitamin D level 13.2. * Patient started on Ergocalciferol 50,000 units oral weekly. (11) Grade I diastolic dysfunction: Code(s): I51.89 - Other ill-defined heart diseases Status: Acute Assessment and Plan: * Amlodipine 5 mg PO daily. * Encourage activity and weight loss. Subjective Date/time seen: 04/26/25 13:05 Interval history: Patient sitting up in chair. Patient states that she walked early. Patient clearer in her thinking and feeling better. Patient denies chest pain, palpitations, headache, dizziness, nausea, or vomiting. Review of Systems Review of Systems: All systems reviewed & are unremarkable except as noted in HPI and below Exam Const: General: comfortable and no acute distress Resp: Effort & Inspection: normal respiratory effort Other: slightly diminished Cardio: Rate: regular rate Rhythm: regular rhythm Other: Telemetry- SR 70. GI: GI Palp: Yes Soft to palpation Auscultation: normal bowel sounds Neuro: Speech: normal speech Extrem: General: no pedal edema Psych: Mental Status: mental status grossly normal Affect: normal affect Objective Data Vital Signs Vital Signs: Vital Signs - 24 hr 04/25/25 14:00 04/25/25 16:00 04/25/25 20:00 Temperature 98.2 F Pulse Rate 62 58 L 61 Respiratory Rate 18 Blood Pressure 131/70 Pulse Oximetry 93 Oxygen Delivery Fraction of Inspired Oxygen 04/25/25 21:22 04/25/25 23:00 04/26/25 00:00 Temperature 97 F L Pulse Rate 58 L 58 L 59 L Respiratory Rate 20 18 Blood Pressure 130/77 Pulse Oximetry 98 97 Oxygen Delivery Room Air Fraction of Inspired Oxygen 04/26/25 04:00 04/26/25 06:00 04/26/25 08:00 Temperature 97.1 F L Pulse Rate 53 L 55 L Respiratory Rate 18 Blood Pressure 135/71 Pulse Oximetry 98 Oxygen Delivery Room Air Fraction of Inspired Oxygen 04/26/25 08:00 04/26/25 08:05 Temperature Pulse Rate 55 L Respiratory Rate Blood Pressure Pulse Oximetry 96 Oxygen Delivery Room Air Fraction of Inspired Oxygen 21 Intake/Output Intake/Output: Intake & Output 04/23/25 04/24/25 04/25/25 04/26/25 23:59 23:59 23:59 23:59 Intake Total 3060 2960 2440 1950 Output Total 1500 1600 2300 900 Balance 1560 1818 767 3230 Meds/Results Medications: Active Medications Generic Name Dose Route Start Last Admin Trade Name Freq PRN Reason Stop Dose Admin Acetaminophen 650 mg 04/22/25 16:47 Acetaminophen 325 Mg Tablet PO Q4H PRN Mild Pain (1-3) or Fever Amlodipine Besylate 5 mg 04/24/25 11:20 04/26/25 08:33 Amlodipine Besylate 5 Mg Tablet PO 5 mg DAILY JARRELL Administration Aripiprazole 10 mg 04/23/25 09:00 04/26/25 08:33 Aripiprazole 10 Mg Tablet PO 10 mg DAILY JARRELL Administration Dextrose 12.5 gm 04/25/25 12:14 Dextrose 50% 25 Gm/50 Ml Syringe IV PUSH PRN PRN Hypoglycemia Protocol Docusate Sodium 100 mg 04/25/25 12:16 Docusate Sodium 100 Mg Capsule PO Q12H PRN Constipation Duloxetine HCl 60 mg 04/23/25 09:00 04/26/25 08:33 Duloxetine Hcl 60 Mg Capsule.Dr PO 60 mg DAILY JARRELL Administration Enoxaparin Sodium 40 mg 04/23/25 09:00 04/26/25 08:33 Enoxaparin 40 Mg/0.4 Ml Syringe SUB-Q 40 mg Q12HR JARRELL Administration Ergocalciferol 1,250 mcg 04/23/25 09:55 04/23/25 10:52 Ergocalciferol (Vitamin D2) 1,250 Mcg (50,000 Units) Capsule PO 1,250 mcg Th@0900 JARRELL Administration Fluticasone/Umeclidinium/Vilanterol 1 puff 04/24/25 12:00 04/26/25 08:08 Fluticasone/Umeclidin/Vilanter 100-62.5-25 Mcg Ellipta INHALATION 1 puff DAILYRT JARRELL Administration Furosemide 40 mg 04/25/25 09:00 04/26/25 08:33 Furosemide 40 Mg Tablet PO 40 mg DAILY JARRELL Administration Gabapentin 100 mg 04/24/25 11:20 04/26/25 08:33 Gabapentin 100 Mg Capsule PO 100 mg BID JARRELL Administration Glucagon 1 mg 04/25/25 12:14 Glucagon For Inj 1 Mg Vial IM PRN PRN Hypoglycemia Protocol Glucose 15 gm 04/25/25 12:14 Glucose Oral Gel 15 Gm Of Glucse In 37.5 Gm Tube PO PRN PRN Hypoglycemia Protocol Guaifenesin 600 mg 04/25/25 12:20 04/26/25 08:33 Guaifenesin 12 Hr 600 Mg Tabcr PO 05/02/25 12:19 600 mg Q12HR JARRELL Administration Ceftriaxone Sodium 1 gm in 50 mls @ 100 mls/hr 04/22/25 23:00 04/25/25 23:12 Rocephin 1 Gm/Ns 50 Ml IVPB Infused Q24H JARRELL Infusion Azithromycin 500 mg in 250 mls @ 250 mls/hr 04/22/25 23:00 04/26/25 00:10 Zithromax IVPB Infused Q24H JARRELL Infusion Dextrose 1,000 mls @ 100 mls/hr 04/25/25 12:14 Dextrose 5% 1,000 Ml IVPB PRN PRN Hypoglycemia Protocol Levothyroxine Sodium 200 mcg 04/25/25 06:30 04/26/25 06:17 Levothyroxine Sodium 100 Mcg Tablet PO 200 mcg DAILY@0630 JARRELL Administration Polyethylene Glycol 17 gm 04/25/25 12:20 04/26/25 08:33 Polyethylene Glycol 3350 17 Gm Powd.Pack PO 17 gm QAM JARRELL Administration Radiology Results: ITS Impressions Head CT 04/22/25 14:51 Impression: No significant abnormality seen. Chest X-Ray 04/22/25 15:14 IMPRESSION: Bibasilar pneumonia. Highly suggestive cardiomegaly with cardiac decompensation and pulmonary edema. Clinical correlation advised. Chest CTA 04/22/25 15:23 IMPRESSION: 1. No pulmonary embolism. 2. Left basilar atelectasis versus pneumonia. 3. Enlarged thyroid gland with slight narrowing of the trachea. 4. Dilated esophagus. Further evaluation advised. 5. Left adrenal mass. Further evaluation advised with MRI. 6. Multiple hypodensities in the spleen. Follow-up advised. 7. Moderate cardiomegaly. Thyroid Ultrasound 04/23/25 09:14 IMPRESSION: 1. Enlarged and heterogeneously hypoechoic thyroid with pseudonodular appearance typical of Demetrio's/lymphocytic thyroiditis. Labs Labs: Laboratory Results - last 24 hr 04/25/25 04/25/25 04/26/25 16:47 23:18 05:34 WBC RBC Hgb Hct MCV MCH MCHC RDW Plt Count MPV Immature Gran % (Auto) Neut % (Auto) Lymph % (Auto) [place] % (Auto) Eos % (Auto) Baso % (Auto) Lymph # (Auto) [place] # (Auto) Eos # (Auto) Baso # (Auto) Abs Immat Gran (auto) Absolute Neuts (auto) Absolute Nucleated RBC Nucleated RBC % Sodium Potassium Chloride Carbon Dioxide Anion Gap BUN Creatinine Estim Creat Clear Calc Estimated GFR Glucose POC Capillary Glucose 93 99 83 Calcium Magnesium Total Bilirubin AST ALT Alkaline Phosphatase Total Protein Albumin 04/26/25 04/26/25 04/26/25 05:46 08:19 11:36 WBC 4.7 RBC 5.77 H Hgb 15.0 Hct 49.2 H MCV 85.3 MCH 26.0 MCHC 30.5 L RDW 16.9 H Plt Count 163 MPV 9.9 Immature Gran % (Auto) 0.4 Neut % (Auto) 67.6 Lymph % (Auto) 24.7 [place] % (Auto) 6.2 Eos % (Auto) 0.0 Baso % (Auto) 1.1 Lymph # (Auto) 1.16 [place] # (Auto) 0.3 Eos # (Auto) 0.0 Baso # (Auto) 0.1 Abs Immat Gran (auto) 0.02 Absolute Neuts (auto) 3.2 Absolute Nucleated RBC 0.000 Nucleated RBC % 0.0 Sodium 138 Potassium 5.0 Chloride 98 Carbon Dioxide 37 H Anion Gap 3 L BUN 18 H Creatinine 1.09 H Estim Creat Clear Calc 77 Estimated GFR 51 L Glucose 76 POC Capillary Glucose 80 118 H Calcium 9.6 Magnesium 2.5 H Total Bilirubin 0.7 AST 18 ALT 12 Alkaline Phosphatase 76 Total Protein 7.7 Albumin 4.1 Quality VTE Prophylaxis VTE prophylaxis: pharmacologic ordered (Lovenox 40 mg subQ q.12 hours (q.12 hours dosing due to BMI greater than 40))
[2025-04-26 17:12] LABS: Glucose Point of Care 109 mg/dl (65-105)
[2025-04-26] MEDS: AZITHROMYCIN 500 MG/NS 250 ML 500 MG/250 ML BAG 250 MG IVPB (22:26)
[2025-04-26 23:40] LABS: Glucose Point of Care 114 mg/dl (65-105)
[2025-04-27] VITALS (11 sets, daily range): BP systolic 141–143; BP diastolic 66–77; PULSE 56–82; RESP 18–20; TEMP 36.2–36.7; O2SAT 82–97
[2025-04-27 05:28] LABS: Glucose Point of Care 65 mg/dl (65-105)
[2025-04-27] MEDS: GLUCOSE ORAL GEL 15 GM OF GLUCSE IN 37.5 GM TUBE PO (05:28)
[2025-04-27] MEDS: LEVOTHYROXINE SODIUM 100 MCG TABLET 200 MCG PO (05:30)
[2025-04-27 05:50] LABS: Glucose Point of Care 80 mg/dl (65-105)
[2025-04-27 07:11] LABS: Basophils Percent Auto 0.7 % (0.2-1.2); Hematocrit 47.3 % (37.0-47.0); Immature Granulocyte Absolute 0.01 K/mm3 (0.00-0.031); Immature Granulocyte Percent A 0.2 % (0-0.5); Lymphocytes Absolute Auto 1.05 K/mm3 (0.9-3.2); Lymphocytes Percent Auto 25.5 % (18.3-44.2); Mean Corpuscular HGB Conc 29.6 g/dl (32-36); Mean Corpuscular Hemoglobin 25.5 pg (26-34); Mean Corpuscular Volume 86.3 fl (80-100); Monocytes Absolute Auto 0.3 K/mm3 (0.1-0.6); Neutrophils Absolute Auto 2.7 K/mm3 (1.3-6.7); Neutrophils Percent Auto 66.6 % (45.5-73.1); Platelet Count Result 145 k/mm3 (150-375); Red Blood Count 5.48 M/mm3 (4.2-5.4); Red Cell Distribution Width 16.5 % (11.5-14.5); White Blood Count 4.1 K/mm3 (4.5-10.0)
[2025-04-27 07:23] LABS: Alanine Aminotransferase 13 U/L (6-35); Alkaline Phosphatase 78 U/L (38-126); Anion Gap 5 mmol/L (4-12); Aspartate Amino Transferase 18 U/L (14-36); Bilirubin,Total 0.6 mg/dL (0.2-1.3); Blood Urea Nitrogen 19 mg/dL (7-17); Calcium 9.4 mg/dL (8.4-10.2); Carbon Dioxide 34 mmol/L (22-30); Chloride 98 mmol/L (98-107); Estimated CRCL calculation 73 ml/min; Estimated Glomerular Filt Rate 48; Glucose 80 mg/dL (65-110); Magnesium 2.4 mg/dL (1.6-2.3); Potassium 5.1 mmol/L (3.4-5.0); Sodium 137 mmol/L (137-145); Total Protein 7.9 g/dL (6.3-8.2)
[2025-04-27 07:55] LABS: Hypochromasia 1+; Platelet Estimate Slightly Decreased (Adequate); Schistocytes None Seen
[2025-04-27] MEDS: amLODIPine BESYLATE 5 MG TABLET PO (08:46)
[2025-04-27] MEDS: DULoxetine HCL 60 MG CAPSULE.DR PO (08:46)
[2025-04-27] MEDS: ARIPiprazole 10 MG TABLET PO (08:46)
[2025-04-27] MEDS: FUROSEMIDE 40 MG TABLET PO (08:46)
[2025-04-27] MEDS: polyethylene glycoL 3350 17 GM POWD.PACK PO (08:47)
[2025-04-27] MEDS: ENOXAPARIN 40 MG/0.4 ML SYRINGE SUB-Q (08:47)
[2025-04-27] MEDS: guaiFENesin 12 HR 600 MG TABCR PO (08:48)
[2025-04-27] MEDS: GABAPENTIN 100 MG CAPSULE PO (09:24)
[2025-04-27] MEDS: FLUTICASONE/UMECLIDIN/VILANTER 100-62.5-25 MCG ELLIPTA 1 PUFF INHALATION (09:50)
--- NOTE | 2025-04-27 10:15 | PM.DS ---
DS: Admitting Diagnosis Discharge Date 04/27/2025 Admitting Diagnosis Altered mental status. DS: Discharge Diagnosis Discharge Diagnosis (1) Hypothyroidism: Qualifiers: Hypothyroidism type: acquired Qualified Code(s): E03.9 - Hypothyroidism, unspecified Code(s): E03.9 - Hypothyroidism, unspecified Status: Acute (2) Pneumonia: Code(s): J18.9 - Pneumonia, unspecified organism Status: Acute (3) Adrenal mass 1 cm to 4 cm in diameter: Code(s): E27.8 - Other specified disorders of adrenal gland Status: Acute (4) Morbid obesity with BMI of 45.0-49.9, adult: Code(s): E66.01 - Morbid (severe) obesity due to excess calories; Z68.42 - Body mass index [BMI] 45.0-49.9, adult Status: Acute (5) Cardiomegaly: Code(s): I51.7 - Cardiomegaly Status: Acute (6) Goiter diffuse: Code(s): E04.0 - Nontoxic diffuse goiter Status: Acute (7) Lymphedema: Code(s): I89.0 - Lymphedema, not elsewhere classified Status: Acute (8) Vitamin D deficiency: Code(s): E55.9 - Vitamin D deficiency, unspecified Status: Acute (9) Grade I diastolic dysfunction: Code(s): I51.89 - Other ill-defined heart diseases Status: Acute DS: Summary Hospital Course Hospital Course: Patient is a 59 year old female that came by ambulance with altered mental status. Patient complained of urine frequency and burning sensation for weeks. Patient had a blood glucose of 63 patients symptoms resolved immediately after having 15 gm of oral glucose. EMS gave 200 ml of D10. In ED patient alert and oriented x4. Head CT 04/22/25 14:51 Impression: No significant abnormality seen. Chest X-Ray 04/22/25 15:14 IMPRESSION: Bibasilar pneumonia. Highly suggestive cardiomegaly with cardiac decompensation and pulmonary edema. Clinical correlation advised. Chest CTA 04/22/25 15:23 IMPRESSION: 1. No pulmonary embolism. 2. Left basilar atelectasis versus pneumonia. 3. Enlarged thyroid gland with slight narrowing of the trachea. 4. Dilated esophagus. Further evaluation advised. 5. Left adrenal mass. Further evaluation advised with MRI. 6. Multiple hypodensities in the spleen. Follow-up advised. 7. Moderate cardiomegaly. EKG:Test Date: 2025-04-22 13:41:40 Measurements Intervals [place] Rate: 53 P: 23 AR: 175 QRS: 70 QRSD: 101 T: 7 QT: 436 QTc: 412 Interpretive Statements SINUS BRADYCARDIA INCOMPLETE RIGHT BUNDLE BRANCH BLOCK CONSIDER ANTERIOR INFARCT, AGE INDETERMINATE MODERATE T-WAVE ABNORMALITY, CONSIDER ANTEOSEPTAL ISCHEMIA BASELINE ARTIFACT- I, II, III, AVR, AVL, AVF, V1, V4-V6 ABNORMAL ECG No previous ECG available for comparison All imaging and EKGs personally reviewed and interpreted. And unless stated otherwise agree with radiologic and cardiology interpretation. Echocardiogram showed: Summary 1. Concentric left ventricular hypertrophy with normal systolic function and grade 1 diastolic noncompliance. 2. Left atrial enlargement. 3. No significant valve dysfunction. Left Ventricle Left ventricular chamber dimension is normal. Left ventricular systolic function is normal, estimated at 60-65. There is moderate concentric increased left ventricular wall thickness. The left ventricular diastolic function is grade I diastolic dysfunction. Thyroid ultrasound 04/23/2025: FINDINGS: The right thyroid lobe measures 6.9 x 2.7 x 3.2 cm. The left thyroid lobe measures 2.4 x 2.3 cm in transaxial dimensions. The length of the left thyroid lobe which measures approximately 5.5 cm on the prior CT is unable to be assessed on the current ultrasound as there is significant intrathoracic extension of the inferior left thyroid which is obscured by the clavicles and manubrium. There is a diffuse heterogeneous hypoechoic pseudonodular appearance to the thyroid with coarsened echotexture and increased vascular flow on color Doppler. No discrete nodules identified. IMPRESSION: 1. Enlarged and heterogeneously hypoechoic thyroid with pseudonodular appearance typical of Demetrio's/lymphocytic thyroiditis. HgbA1C 5.0%. Patient with episodes of dropping sugars into the 60's. Jardiance discontinued. TSH 51.900, Free T4 1.06, Total T3 0.64. Increased Levothyroxine 200 mcg PO daily. Patient to see Endocrinology outpatient. PT/OT. Vitamin D level 13.2. Vitamin D started. Pneumonia- transitioned for IV antibiotics to oral antibiotics. Patient requiring oxygen 2 liters with activity and 2 liters at night. Encouraged patient to get an outpatient sleep study. Status at Discharge Functional status at discharge: uses cane/walker Overall status at discharge: patient is not back to baseline Time Spent with Patient Time attestation: Total time spent providing and/or coordinating discharge services: Time spent: Greater than 30 minutes Exam Const: General: comfortable and no acute distress Resp: Effort & Inspection: normal respiratory effort Other: Slightly diminished. Cardio: Rate: bradycardic Other: Telemetry- sinus bradycardia 58. GI: GI Palp: Yes Soft to palpation Auscultation: normal bowel sounds Skin: Other: Chronic venous stasis changes with lymphedema and lipedema bilateral lower extremities right greater than left with chronic scarring to the posterior left calf, with edema noted up into the thighs as well that is nonpitting Extrem: Other: See skin. Psych: Mental Status: mental status grossly normal Affect: normal affect DS: Data Data Completed and Pending Labs on day of discharge: Labs from last 24 hours 04/27/25 04/27/25 04/27/25 07:05 05:47 05:25 WBC 4.1 L RBC 5.48 H Hgb 14.0 Hct 47.3 H MCV 86.3 MCH 25.5 L MCHC 29.6 L RDW 16.5 H Plt Count 145 L MPV 10.0 Immature Gran % (Auto) 0.2 Neut % (Auto) 66.6 Lymph % (Auto) 25.5 [place] % (Auto) 7.0 Eos % (Auto) 0.0 Baso % (Auto) 0.7 Lymph # (Auto) 1.05 [place] # (Auto) 0.3 Eos # (Auto) 0.0 Baso # (Auto) 0.0 Abs Immat Gran (auto) 0.01 Absolute Neuts (auto) 2.7 Absolute Nucleated RBC 0.000 Band Neutrophils % Not Reportable Nucleated RBC % 0.0 Platelet Estimate Slightly decreased Hypochromasia 1+ Schistocytes None seen Sodium 137 Potassium 5.1 H Chloride 98 Carbon Dioxide 34 H Anion Gap 5 BUN 19 H Creatinine 1.15 H Estim Creat Clear Calc 73 Estimated GFR 48 L Glucose 80 POC Capillary Glucose 80 65 Calcium 9.4 Magnesium 2.4 H Total Bilirubin 0.6 AST 18 ALT 13 Alkaline Phosphatase 78 Total Protein 7.9 Albumin 4.0 04/26/25 04/26/25 04/26/25 23:38 17:03 11:36 WBC RBC Hgb Hct MCV MCH MCHC RDW Plt Count MPV Immature Gran % (Auto) Neut % (Auto) Lymph % (Auto) [place] % (Auto) Eos % (Auto) Baso % (Auto) Lymph # (Auto) [place] # (Auto) Eos # (Auto) Baso # (Auto) Abs Immat Gran (auto) Absolute Neuts (auto) Absolute Nucleated RBC Band Neutrophils % Nucleated RBC % Platelet Estimate Hypochromasia Schistocytes Sodium Potassium Chloride Carbon Dioxide Anion Gap BUN Creatinine Estim Creat Clear Calc Estimated GFR Glucose POC Capillary Glucose 114 H 109 H 118 H Calcium Magnesium Total Bilirubin AST ALT Alkaline Phosphatase Total Protein Albumin Discharge Plan Discharge Attending physician on discharge: Pako Knox Discharging Clinician: Maria G Zaman Anticipated Discharge Date/Time: 04/27/25 11:31 Patient Disposition: Home Activity: may shower and as tolerated Diet: heart healthy Discharge Instructions: Care Coordination: Patient to have [facility] for PT/OT eval and treat, and retirement. Their phone number is [phone] if you have any questions; they will contact you to schedule their first visit. Wear oxygen at 2 liters nasal cannula at night and with activity. No oxygen required at rest. Schedule appointment with Endocrinology. Put pills in a pill box. Talk to primary about setting up an outpatient sleep study. It is important that you keep all of your appointments, take medications as prescribed, and wear oxygen as instructed. TSH 51.900. HgbA1C 5.0%. Eat a snack at bedtime. Do not take Jardiance. Vitamin D level 13.2. Started on Vitamin D. Complete all doses of antibiotics. Thank you for entrusting [facility] with your healthcare! Patient Instructions: Antibiotic Form, Heart Failure (GEN), Hypothyroidism (DC), Using Oxygen at Home (DC), Weight Management (DC), Pneumonia (DC), Vitamin D Deficiency (ED) Patient Language: Hungarian Stand Alone Forms: General Discharge Information Follow-up/Referrals: [facility] [Provider Group] - Call for Appointment (Hypothyroidism. TSH 51.900. Enlarged and heterogeneously hypoechoic thyroid with pseudonodular appearance typical of Demetrio's/lymphocytic thyroiditis. Left adrenal mass. ) Troy,DO Casimiro [Primary Care Provider] - 1 Week Discharge Medications: New ergocalciferol (vitamin D2) 1,250 mcg (50,000 unit) Capsule 1,250 mcg PO Th@0900 Qty: 7 0RF amoxicillin-pot clavulanate 875-125 mg tablet 1 tablet PO Q12H Qty: 4 0RF acetaminophen 325 mg Tablet 650 mg PO Q4H PRN (Reason: Mild Pain (1-3) Or Fever) Qty: 60 0RF guaifenesin [Mucus Relief ER] 600 mg Tablet Extended Release 12hr 600 mg PO Q12HR Qty: 14 0RF levothyroxine [Synthroid] 100 mcg Tablet 200 mcg PO DAILY@0630 Qty: 30 0RF Continued duloxetine 60 mg capsule,delayed release(DR/EC) 60 mg PO DAILY aripiprazole 10 mg tablet 10 mg PO DAILY furosemide 20 mg tablet 20 mg PO QAM furosemide 40 mg tablet 40 mg PO DAILY gabapentin 100 mg capsule 100 mg PO BID amlodipine 5 mg tablet 5 mg PO DAILY Trelegy Ellipta 100-62.5-25 mcg blister with device 1 inh INHALATION Q24H albuterol sulfate [Ventolin HFA] 90 mcg/actuation HFA aerosol inhaler 2 puff inhalation Q4H PRN (Reason: shortness of breath or wheezing) Qty: 6.7 0RF Rx Instructions: pt needs an appt Discontinued levothyroxine 200 mcg tablet 200 mcg PO DAILY Qty: 90 1RF levothyroxine 50 mcg tablet 50 mcg PO DAILY Qty: 90 1RF trazodone 50 mg tablet 50 mg PO QHS PRN (Reason: sleep) Jardiance 10 mg tablet 10 mg PO DAILY levothyroxine 150 mcg tablet 150 mcg PO DAILY@0630 fluticasone propion-salmeterol 250-50 mcg/dose blister with device 1 inh inhalation Q12H ibuprofen 800 mg tablet See Rx Instructions .ROUTE .COMPLEX Qty: 90 0RF Dose Instruction: TAKE 1 TABLET BY MOUTH EVERY 8 HOURS NEEDED FOR PAIN Rx Instructions: TAKE 1 TABLET BY MOUTH EVERY 8 HOURS NEEDED FOR PAIN Date of admission: 04/24/25 14:41 Primary Care Provider: TroyCasimiro Admitting Provider: Bennett Velazquez Attending physician on admission: Bennett Velazquez Condition: Improved Hospitalist MIPS Heart Failure (Exclusion) Patient has history of Heart Transplant or Left Ventricular Assistive Device?: No IF YES, STOP HERE Heart Failure (Qualifier) Patient has current or prior documentation of LVEF less than or equal to 40%, or mod/servere depressed LVSF?: No IF NO, STOP HERE
--- NOTE | 2025-04-27 11:30 | HOMEO2EVAL ---
Evaluation was performed at [facility] Home Oxygen Evaluation RC: Home Oxygen (O2) Evaluation Start: 04/27/25 10:14 Freq: ONCE Status: Active Protocol: RPE Activity Type Activity Date Activity User E-sign Co-sign Detail Recorded Client Recorded Date Recorded By Document 04/27/25 10:51 KRM [email or web address] 04/27/25 11:29 KRM Document 04/27/25 10:53 [email or web address] [email or web address] 04/27/25 11:29 KRM Document 04/27/25 10:55 [email or web address] [email or web address] 04/27/25 11:29 KRM Document 04/27/25 10:57 [email or web address] [email or web address] 04/27/25 11:29 KRM 04/27/25 04/27/25 04/27/25 10:51 10:53 10:55 Home O2 Evaluation [Oxygen] -Test Phase Resting Exercise Exercise -Oxygen Delivery Room Air Room Air Nasal Cannula -Oxygen Flow Rate (L/min) 1 [Pulse Oximetry] -Pulse Oximetry (90-100 %) 94 82 L 86 L [Pulse Rate] -Pulse Rate (60-100 beats/min) 67 74 80 [Evaluation] -Activity Tolerance Poor Poor [Exercise] -Ambulation Distance (feet) -Ambulation Distance (meters) [Comments] -Home Oxygen Evaluation Comments [Charges] -Evaluation Charges 04/27/25 10:57 Home O2 Evaluation [Oxygen] -Test Phase Exercise -Oxygen Delivery Nasal Cannula -Oxygen Flow Rate (L/min) 2 [Pulse Oximetry] -Pulse Oximetry (90-100 %) 90 [Pulse Rate] -Pulse Rate (60-100 beats/min) 74 [Evaluation] -Activity Tolerance Poor [Exercise] -Ambulation Distance (feet) 20 -Ambulation Distance (meters) 6.09 [Comments] -Home Oxygen Evaluation Comments room air at rest, 2lpm with activity. [Charges] -Evaluation Charges O2 Evaluation by Pulmonary
[2025-04-27 12:23] LABS: Glucose Point of Care 93 mg/dl (65-105)
[2025-04-29 15:04] LABS: PRA 0.41 ng/mL/h (0.25-5.82)
== END 2025-04-27 14:30 | disposition home health service (06) | DRG 643 ==
LOC: ANHED 16:21 → ANH2MED 17:24
PROVIDERS: Nurse Practitioner Gerontology; Admitting Provider Internal Medicine; Emergency Provider Emergency Medicine; PCP Student in an Organized Health Care Education/Training Program; Visit Provider Nurse Practitioner Family
DX: E16.0 Drug-induced hypoglycemia without coma (principal); J18.9 Pneumonia, unspecified organism; Z68.42 Body mass index [BMI] 45.0-49.9, adult; T50.995A Adverse effect of other drugs, medicaments and biological substances, initial encounter; R41.82 Altered mental status, unspecified; E03.9 Hypothyroidism, unspecified; E27.8 Other specified disorders of adrenal gland; I10 Essential (primary) hypertension; E66.01 Morbid (severe) obesity due to excess calories; I51.7 Cardiomegaly; R35.0 Frequency of micturition; G47.33 Obstructive sleep apnea (adult) (pediatric); E04.0 Nontoxic diffuse goiter; I89.0 Lymphedema, not elsewhere classified; E55.9 Vitamin D deficiency, unspecified; I51.89 Other ill-defined heart diseases; F31.9 Bipolar disorder, unspecified; F41.1 Generalized anxiety disorder; Z90.49 Acquired absence of other specified parts of digestive tract; Z90.710 Acquired absence of both cervix and uterus; Z87.891 Personal history of nicotine dependence
CPT/HCPCS: 36415; 36600; 70450; 71045; 71275; 76536; 80053; 80307; 81003; 82077; 82088; 82140; 82306; 82533; 82550; 82607; 82805; 82948; 83036; 83735; 83880; 84244; 84439; 84443; 84480; 84484; 85018; 85025; 85610; 85730; 93005; 94618; 94640; 94762; 96374; 97110; 97161; 97166; 97530; 97535; 99285; A9270; C8929; G0378; J0456; J0696; J1650; J1938; Q9957; Q9967